=== PATIENT | male | born 1970 | race African-American/Black ===

== ENCOUNTER 2016-08-06 02:54 | Emergency (ER) | payer OTHER ==
[~2016-08-06] VITALS: Ht 167.6 cm; Wt 72.7 kg
[~2016-08-06 02:54] MED LIST: CLON0.3T3 PO; DIAZ10 PO; DOXE50 PO; FIORIT PO; HYDR25TA PO; IBUP-1547 PO; LABE200T PO; NIFE60TA71 PO; SERT100T12 PO
[2016-08-06] MEDS ORDERED: HYDR100T28 PO (03:10)
[2016-08-06] MEDS ORDERED: CloNIDine HCL 0.1 MG TABLET PO ONE (03:15)
[2016-08-06] MEDS ORDERED: ONDANSETRON HCL 4 MG/2 ML VIAL IVP ONE (05:00)
[2016-08-06] MEDS ORDERED: HydrALAZINE HCL 20 MG/ML VIAL IVP ONE (05:00)
[2016-08-06] MEDS ORDERED: DiphenhydrAMINE HCL 50 MG/ML VIAL IVP ONE (05:00)
[2016-08-06] MEDS ORDERED: LORazepam 2 MG/ML VIAL IVP ONE (05:00)
[2016-08-06 07:48] VITALS: BP 168/103
== END 2016-08-06 08:11 | disposition home or self-care (01) ==
LOC: EMS 02:56
DX: G40.909 Epilepsy, unspecified, not intractable, without status epilepticus (principal); I10 Essential (primary) hypertension; F41.9 Anxiety disorder, unspecified; R00.2 Palpitations; G89.29 Other chronic pain; F17.210 Nicotine dependence, cigarettes, uncomplicated; Z88.6 Allergy status to analgesic agent; Z88.5 Allergy status to narcotic agent
CPT/HCPCS: 96374; 96375; 99284; 99406; J0360; J1200; J2060; J2405

== ENCOUNTER 2016-11-06 12:38 | Inpatient (IN) | payer OTHER ==
[~2016-11-06] VITALS: Ht 167.6 cm; Wt 73.4 kg
[~2016-11-06 12:38] MED LIST changes: +HYDR100T28 PO; -IBUP-1547 PO
[2016-11-06 15:37] LABS: BASOPHILS % (AUTO) 0.4 % (0.0-2.0); EOSINOPHILS % (AUTO) 0.8 % (1.0-6.0); HEMATOCRIT 41.2 % (41-53); LYMPHOCYTES # (AUTO) 2.2 K/uL (1.0-4.8); LYMPHOCYTES % (AUTO) 17.8 % (22.0-44.0); MEAN CORPUSCULAR HEMOGLOBIN 26.6 pg (26.0-34.0); MEAN CORPUSCULAR HGB CONC 31.6 G/dL (31.0-37.0); MEAN CORPUSCULAR VOLUME 84 fL (80-100); MONOCYTES # (AUTO) 0.6 K/uL (0.1-1.0); MONOCYTES % (AUTO) 4.7 % (2.0-9.0); NEUTROPHILS # (AUTO) 9.3 K/uL (1.8-7.7); NEUTROPHILS % (AUTO) 76.3 % (40.0-70.0); PLATELET COUNT (AUTO) 188 K/uL (150-450); RED BLOOD CELL COUNT(AUTO) 4.89 MIL/uL (4.50-5.90); RED CELL DISTRIBUTION WIDTH 15.9 % (11.5-14.5); WHITE BLOOD COUNT (AUTO) 12.3 K/uL (4.5-11.0)
[2016-11-06 15:56] LABS: ANION GAP 13 mmol/L (8-16); CALCIUM, TOTAL 8.8 mg/dL (8.8-10.5); CARBON DIOXIDE 24 mmol/L (22-29); CHLORIDE 102 mmol/L (98-107); CREATININE 1.09 mg/dL (0.60-1.30); GLOMERULAR FILTR. RATE CALC > 60 mL/min (>60); POTASSIUM 3.3 mmol/L (3.5-5.1); SODIUM SERUM 139 mmol/L (136-145); UREA NITROGEN, BLOOD 9 mg/dL (7-18)
[2016-11-06 16:01] LABS: ALANINE AMINOTRANSFERASE 37 U/L (12-78); ALBUMIN 3.9 g/dL (3.4-5.0); ASPARTATE AMINOTRANSFERASE 37 U/L (15-37); BILIRUBIN,TOTAL 0.2 mg/dL (0.1-1.0); CREATINE KINASE, TOTAL 823 U/L (39-308); TOTAL PROTEIN, SERUM 7.7 g/dL (6.4-8.2)
[2016-11-06] MEDS ORDERED: ASPIRIN 325 MG EC TABLET PO ONE (17:15)
[2016-11-06] MEDS ORDERED: HYDROmorphone 2 MG/ML SYRINGE IVP ONE (17:15)
[2016-11-06] MEDS ORDERED: NITROGLYCERIN 0.4 MG SUBLINGUAL TABLET #25 SL ONE (17:15)
[2016-11-06] MEDS ORDERED: LORazepam 2 MG/ML VIAL IVP ONE (17:15)
[2016-11-06] MEDS ORDERED: ONDANSETRON HCL 4 MG/2 ML VIAL IVP ONE (17:15)
[2016-11-06] MEDS ORDERED: NITROGLYCERIN 2% (1 GM=INCH) PACKET TP ONE (17:15)
[2016-11-06] MEDS ORDERED: LABETALOL HCL 200 MG TABLET PO ONE (17:15)
[2016-11-06] MEDS ORDERED: PANTOPRAZOLE SODIUM 40 MG/VIAL IVP ONE (17:15)
[2016-11-06 17:38] LABS: CREATINE KINASE MB 13.9 ng/mL (0-5)
[2016-11-06] MEDS ORDERED: CloNIDine HCL 0.1 MG TABLET PO ONE (18:45)
[2016-11-06] MEDS ORDERED: HYDROCHLOROTHIAZIDE 25 MG TABLET PO ONE (18:45)
[2016-11-06] MEDS ORDERED: HydrALAZINE HCL 25 MG TABLET PO ONE (18:45)
[2016-11-06 21:22] VITALS: BP 174/103
[2016-11-06 21:23] LABS: CREATINE KINASE MB 25.5 ng/mL (0-5)
[2016-11-06] MEDS ORDERED: HEPARIN SODIUM,PORCINE 5,000 UNITS/ML VIAL IVP ONE (21:30)
[2016-11-06] MEDS ORDERED: HEPARIN SODIUM 25000 UNITS/D5W 250 ML IV PRN (21:30)
[2016-11-06] MEDS ORDERED: HEPARIN SODIUM,PORCINE 5,000 UNITS/ML VIAL IVP PRN ×2 (21:30)
[2016-11-06 22:07] LABS: APPEARANCE,URINE CLEAR (CLEAR); GLUCOSE, URINE (UA) NEGATIVE (NEGATIVE); KETONES,URINE NEGATIVE (NEGATIVE); LEUKOCYTE ESTERASE ,URINE NEGATIVE (NEGATIVE); OCCULT BLOOD,URINE NEGATIVE (NEGATIVE); PH,URINE 6.5 (5.0-8.0); PROTEIN,URINE TRACE (NEGATIVE)
[2016-11-06] MEDS: LORazepam 2 MG/ML VIAL IVP PRN (22:11)
[2016-11-06 22:20] LABS: ADD UA MICROSCOPIC NO
[2016-11-06] MEDS: HYDROmorphone 2 MG/ML SYRINGE IVP PRN (22:24)
[2016-11-06 22:44] LABS: INR 0.9 (0.9-1.1); PROTHROMBIN TIME 9.7 SEC (9.4-11.6)
[2016-11-06 23:57] VITALS: BP 193/124
[2016-11-06] MEDS: NITROGLYCERIN 2% (1 GM=INCH) PACKET TP SCH (23:58)
[2016-11-07] VITALS (13 sets, daily range): BP systolic 121–195; BP diastolic 59–123
[2016-11-07] MEDS ORDERED: BUTALBITAL/ACETAMINOPHEN/CAFFEINE 50-325-40 MG TABLET PO PRN (00:45)
[2016-11-07] MEDS ORDERED: LABETALOL HCL 200 MG TABLET PO SCH (00:45)
[2016-11-07] MEDS ORDERED: NIFEdipine 60 MG ER TABLET PO SCH (00:45)
[2016-11-07] MEDS ORDERED: HYDROCHLOROTHIAZIDE 25 MG TABLET PO SCH (00:45)
[2016-11-07] MEDS: HYDROCHLOROTHIAZIDE 25 MG TABLET PO SCH ×3 (01:07→22:29)
[2016-11-07] MEDS: LABETALOL HCL 200 MG TABLET PO SCH ×2 (01:25→08:24)
[2016-11-07] MEDS: NIFEdipine 60 MG ER TABLET PO SCH ×3 (01:26→20:24)
[2016-11-07] MEDS ORDERED: ACETAMINOPHEN 325 MG TABLET PO PRN (02:15)
[2016-11-07] MEDS ORDERED: MAGNESIUM HYDROXIDE SUSPENSION 30 ML UDCUP PO PRN (02:15)
[2016-11-07] MEDS: DOCUSATE SODIUM 100 MG CAPSULE PO SCH ×3 (02:15→20:24)
[2016-11-07] MEDS ORDERED: 0.9% SODIUM CHLORIDE 10 ML SYRINGE IVP PRN (02:15)
[2016-11-07 04:02] LABS: BASOPHILS # (AUTO) 0.02 K/uL (0.00-0.20); BASOPHILS % (AUTO) 0.3 % (0.0-2.0); EOSINOPHILS # (AUTO) 0.03 K/uL (0.00-0.70); HEMATOCRIT 37.1 % (41-53); HEMOGLOBIN 11.9 g/dL (13.5-17.5); LYMPHOCYTES # (AUTO) 1.6 K/uL (1.0-4.8); LYMPHOCYTES % (AUTO) 19.3 % (22.0-44.0); MEAN CORPUSCULAR HEMOGLOBIN 27.3 pg (26.0-34.0); MEAN CORPUSCULAR HGB CONC 32.2 G/dL (31.0-37.0); MEAN CORPUSCULAR VOLUME 85 fL (80-100); MONOCYTES # (AUTO) 0.6 K/uL (0.1-1.0); MONOCYTES % (AUTO) 6.8 % (2.0-9.0); NEUTROPHILS # (AUTO) 6.1 K/uL (1.8-7.7); NEUTROPHILS % (AUTO) 73.3 % (40.0-70.0); PLATELET COUNT (AUTO) 162 K/uL (150-450); RED BLOOD CELL COUNT(AUTO) 4.38 MIL/uL (4.50-5.90); RED CELL DISTRIBUTION WIDTH 16.2 % (11.5-14.5); WHITE BLOOD COUNT (AUTO) 8.4 K/uL (4.5-11.0)
[2016-11-07] MEDS: HYDROmorphone 2 MG/ML SYRINGE IVP PRN ×2 (04:58→20:24)
[2016-11-07] MEDS: NITROGLYCERIN 2% (1 GM=INCH) PACKET TP SCH ×3 (08:02→17:08)
[2016-11-07] MEDS: PANTOPRAZOLE SODIUM 40 MG/VIAL IVP SCH (08:03)
[2016-11-07] MEDS: HydrALAZINE HCL 50 MG TABLET PO SCH ×3 (08:03→20:23)
[2016-11-07] MEDS: LORazepam 2 MG/ML VIAL IVP PRN (08:04)
[2016-11-07] MEDS: DIAZEPAM 5 MG TABLET PO SCH ×3 (08:04→20:23)
[2016-11-07] MEDS ORDERED: SODIUM BICARBONATE 50 MEQ/50 ML VIAL ONE (08:15)
[2016-11-07] MEDS ORDERED: LIDOCAINE HCL/PF 1% 30 ML VIAL ONE (08:15)
[2016-11-07] MEDS ORDERED: IOHEXOL 300 MG/ML 150 ML VIAL ONE (08:16)
[2016-11-07] MEDS: SERTRALINE HCL 100 MG TABLET PO SCH (08:24)
[2016-11-07] MEDS: DOXEPIN HCL 50 MG CAPSULE PO SCH (08:26)
[2016-11-07] MEDS ORDERED: HEPARIN SODIUM,PORCINE 1,000 UNITS/ML 10 ML VIAL ONE (08:38)
[2016-11-07] MEDS ORDERED: DIAZEPAM 10 MG TABLET PO SCH (09:00)
[2016-11-07] MEDS ORDERED: DOXEPIN HCL 50 MG CAPSULE PO SCH (09:00)
[2016-11-07] MEDS ORDERED: [UNRECOGNIZED DRUG - OTHER] PO SCH (09:00)
[2016-11-07] MEDS ORDERED: SERTRALINE HCL 100 MG TABLET PO SCH (09:00)
[2016-11-07] MEDS ORDERED: MIDAZOLAM HCL 2 MG/2 ML VIAL ONE (09:19)
[2016-11-07] MEDS ORDERED: FentaNYL CITRATE-PF 100 MCG/2 ML VIAL ONE (09:19)
[2016-11-07] MEDS ORDERED: LIDOCAINE 1% 30 ML/SOD BICARB 8.4% 4 ML SQ ONE (09:21)
[2016-11-07] MEDS ORDERED: SODIUM CHLORIDE 0.9% 500 ML IV ONE (09:21)
[2016-11-07] MEDS ORDERED: HEPARIN SODIUM 2,000 UNITS in HEPARIN SODIUM 1000 UNITS/NS 1,000 ML IARTER ONE (09:23)
[2016-11-07] MEDS ORDERED: IOHEXOL 300 MG/ML 150 ML VIAL IARTER ONE (09:26)
[2016-11-07] MEDS ORDERED: IOHEXOL 300 MG/ML 50 ML VIAL IARTER ONE (09:26)
[2016-11-07] MEDS ORDERED: IOHEXOL 300 MG/ML 100 ML VIAL IARTER ONE (09:26)
[2016-11-07] MEDS ORDERED: POTASSIUM CHLORIDE 20 MEQ ER TABLET ONE (09:33)
[2016-11-07] MEDS ORDERED: TICAGRELOR 90 MG TABLET ONE (09:33)
[2016-11-07] MEDS ORDERED: IOHEXOL 300 MG/ML 100 ML VIAL ONE (09:34)
[2016-11-07] MEDS ORDERED: IOHEXOL 300 MG/ML 50 ML VIAL ONE (09:34)
[2016-11-07] MEDS ORDERED: POTASSIUM CHLORIDE 20 MEQ ER TABLET PO ONE (09:35)
[2016-11-07] MEDS ORDERED: TICAGRELOR 90 MG TABLET PO ONE (09:35)
[2016-11-07] MEDS ORDERED: ASPIRIN 325 MG TABLET PO ONE (09:35)
[2016-11-07] MEDS ORDERED: VERAPAMIL HCL 2.5 MG/ML 2 ML VIAL ONE (09:35)
[2016-11-07] MEDS ORDERED: NITROGLYCERIN 50 MG/D5% WATER 250 ML ONE (09:35)
[2016-11-07] MEDS ORDERED: HEPARIN SODIUM,PORCINE 5,000 UNITS/ML VIAL IVP ONE ×2 (09:39→10:57)
[2016-11-07] MEDS ORDERED: VERAPAMIL HCL 2.5 MG/ML 2 ML VIAL ICOR ONE (09:54)
[2016-11-07] MEDS ORDERED: NITROGLYCERIN/D5W 50 MG/250 ML IV BOTTLE ICOR ONE (09:54)
[2016-11-07] MEDS: ONDANSETRON HCL 4 MG/2 ML VIAL IVP PRN ×2 (11:35→22:58)
[2016-11-07] MEDS ORDERED: LISINOPRIL 20 MG TABLET PO SCH (12:00)
[2016-11-07] MEDS: ATORVASTATIN CALCIUM 40 MG TABLET PO SCH (12:20)
[2016-11-07] MEDS: METOPROLOL SUCCINATE 100 MG ER TABLET PO SCH (12:21)
[2016-11-07 12:30] LABS: CREATINE KINASE MB 34.9 ng/mL (0-5)
[2016-11-07 12:49] LABS: GLUCOSE,POINT OF CARE 109 MG/DL (70-110)
[2016-11-07] MEDS: LOSARTAN POTASSIUM 50 MG TABLET PO SCH (15:35)
[2016-11-07] MEDS: TICAGRELOR 90 MG TABLET PO SCH (20:24)
[2016-11-08] VITALS (15 sets, daily range): BP systolic 141–167; BP diastolic 84–109
[2016-11-08] MEDS: NITROGLYCERIN 2% (1 GM=INCH) PACKET TP SCH ×5 (00:39→23:19)
[2016-11-08] MEDS: HYDROmorphone 2 MG/ML SYRINGE IVP PRN ×5 (00:40→20:29)
[2016-11-08] MEDS: ONDANSETRON HCL 4 MG/2 ML VIAL IVP PRN (05:42)
[2016-11-08 05:47] LABS: ALANINE AMINOTRANSFERASE 326 U/L (12-78); ALBUMIN 3.5 g/dL (3.4-5.0); ANION GAP 10 mmol/L (8-16); ASPARTATE AMINOTRANSFERASE 189 U/L (15-37); BILIRUBIN,TOTAL 0.4 mg/dL (0.1-1.0); CALCIUM, TOTAL 8.6 mg/dL (8.8-10.5); CARBON DIOXIDE 27 mmol/L (22-29); CHLORIDE 97 mmol/L (98-107); CREATININE 1.23 mg/dL (0.60-1.30); GLOMERULAR FILTR. RATE CALC > 60 mL/min (>60); POTASSIUM 3.6 mmol/L (3.5-5.1); SODIUM SERUM 134 mmol/L (136-145); TOTAL PROTEIN, SERUM 6.8 g/dL (6.4-8.2); UREA NITROGEN, BLOOD 12 mg/dL (7-18)
[2016-11-08 06:09] LABS: BASOPHILS % (AUTO) 0.2 % (0.0-2.0); EOSINOPHILS % (AUTO) 0.6 % (1.0-6.0); LYMPHOCYTES # (AUTO) 1.6 K/uL (1.0-4.8); LYMPHOCYTES % (AUTO) 14.9 % (22.0-44.0); MEAN CORPUSCULAR HGB CONC 31.7 G/dL (31.0-37.0); MEAN CORPUSCULAR VOLUME 85 fL (80-100); MONOCYTES # (AUTO) 0.6 K/uL (0.1-1.0); MONOCYTES % (AUTO) 5.6 % (2.0-9.0); NEUTROPHILS # (AUTO) 8.2 K/uL (1.8-7.7); NEUTROPHILS % (AUTO) 78.7 % (40.0-70.0); PLATELET COUNT (AUTO) 186 K/uL (150-450); RED BLOOD CELL COUNT(AUTO) 4.47 MIL/uL (4.50-5.90); RED CELL DISTRIBUTION WIDTH 16.1 % (11.5-14.5); WHITE BLOOD COUNT (AUTO) 10.5 K/uL (4.5-11.0)
[2016-11-08] MEDS: PANTOPRAZOLE SODIUM 40 MG/VIAL IVP SCH (08:38)
[2016-11-08] MEDS: DOCUSATE SODIUM 100 MG CAPSULE PO SCH ×2 (08:39→20:27)
[2016-11-08] MEDS: LOSARTAN POTASSIUM 50 MG TABLET PO SCH (08:39)
[2016-11-08] MEDS: ASPIRIN 81 MG CHEWABLE TABLET PO SCH (08:39)
[2016-11-08] MEDS: HydrALAZINE HCL 50 MG TABLET PO SCH ×3 (08:39→22:38)
[2016-11-08] MEDS: TICAGRELOR 90 MG TABLET PO SCH ×2 (08:39→20:27)
[2016-11-08] MEDS: HYDROCHLOROTHIAZIDE 25 MG TABLET PO SCH ×2 (08:40→20:28)
[2016-11-08] MEDS: DOXEPIN HCL 50 MG CAPSULE PO SCH (08:40)
[2016-11-08] MEDS: ATORVASTATIN CALCIUM 40 MG TABLET PO SCH (08:40)
[2016-11-08] MEDS: NIFEdipine 60 MG ER TABLET PO SCH ×2 (08:40→20:28)
[2016-11-08] MEDS: METOPROLOL SUCCINATE 100 MG ER TABLET PO SCH (08:40)
[2016-11-08] MEDS: DIAZEPAM 5 MG TABLET PO SCH ×3 (08:41→20:28)
[2016-11-08] MEDS: SERTRALINE HCL 100 MG TABLET PO SCH (08:41)
[2016-11-08 15:10] LABS: CHOL/HDL RATIO 2.7 (4.2-7.3); CREATINE KINASE MB 8.5 ng/mL (0-5)
[2016-11-09 01:00] VITALS: BP 148/97
[2016-11-09 04:14] VITALS: BP 156/96
[2016-11-09] MEDS: HYDROmorphone 2 MG/ML SYRINGE IVP PRN (04:14)
[2016-11-09] MEDS: NITROGLYCERIN 2% (1 GM=INCH) PACKET TP SCH ×2 (05:35→12:00)
[2016-11-09 05:50] VITALS: BP 152/102
[2016-11-09] MEDS: LOSARTAN POTASSIUM 50 MG TABLET PO SCH (05:53)
[2016-11-09 07:14] LABS: BASOPHILS # (AUTO) 0.03 K/uL (0.00-0.20); BASOPHILS % (AUTO) 0.3 % (0.0-2.0); EOSINOPHILS # (AUTO) 0.08 K/uL (0.00-0.70); EOSINOPHILS % (AUTO) 0.72 % (1.0-6.0); HEMATOCRIT 40.4 % (41-53); LYMPHOCYTES # (AUTO) 2.1 K/uL (1.0-4.8); LYMPHOCYTES % (AUTO) 19.6 % (22.0-44.0); MEAN CORPUSCULAR HEMOGLOBIN 27.2 pg (26.0-34.0); MEAN CORPUSCULAR HGB CONC 32.1 G/dL (31.0-37.0); MEAN CORPUSCULAR VOLUME 85 fL (80-100); MONOCYTES # (AUTO) 0.9 K/uL (0.1-1.0); MONOCYTES % (AUTO) 8.2 % (2.0-9.0); NEUTROPHILS # (AUTO) 7.5 K/uL (1.8-7.7); NEUTROPHILS % (AUTO) 71.2 % (40.0-70.0); PLATELET COUNT (AUTO) 224 K/uL (150-450); RED BLOOD CELL COUNT(AUTO) 4.77 MIL/uL (4.50-5.90); RED CELL DISTRIBUTION WIDTH 15.5 % (11.5-14.5); WHITE BLOOD COUNT (AUTO) 10.5 K/uL (4.5-11.0)
[2016-11-09 07:28] VITALS: BP 139/88
[2016-11-09 08:00] LABS: ALANINE AMINOTRANSFERASE 233 U/L (12-78); ALBUMIN 3.8 g/dL (3.4-5.0); ANION GAP 7 mmol/L (8-16); ASPARTATE AMINOTRANSFERASE 133 U/L (15-37); BILIRUBIN,TOTAL 0.3 mg/dL (0.1-1.0); CALCIUM, TOTAL 9.1 mg/dL (8.8-10.5); CARBON DIOXIDE 30 mmol/L (22-29); CHLORIDE 96 mmol/L (98-107); CREATINE KINASE MB 3.9 ng/mL (0-5); CREATINE KINASE, TOTAL 482 U/L (39-308); CREATININE 1.27 mg/dL (0.60-1.30); GLOMERULAR FILTR. RATE CALC > 60 mL/min (>60); POTASSIUM 3.6 mmol/L (3.5-5.1); SODIUM SERUM 133 mmol/L (136-145); TOTAL PROTEIN, SERUM 7.6 g/dL (6.4-8.2); UREA NITROGEN, BLOOD 18 mg/dL (7-18)
[2016-11-09] MEDS: PANTOPRAZOLE SODIUM 40 MG/VIAL IVP SCH (08:04)
[2016-11-09] MEDS: ATORVASTATIN CALCIUM 40 MG TABLET PO SCH (08:05)
[2016-11-09] MEDS: DIAZEPAM 5 MG TABLET PO SCH (08:05)
[2016-11-09] MEDS: DOCUSATE SODIUM 100 MG CAPSULE PO SCH (08:05)
[2016-11-09] MEDS: ASPIRIN 81 MG CHEWABLE TABLET PO SCH (08:05)
[2016-11-09] MEDS: HYDROCHLOROTHIAZIDE 25 MG TABLET PO SCH (08:06)
[2016-11-09] MEDS: HydrALAZINE HCL 50 MG TABLET PO SCH (08:07)
[2016-11-09] MEDS: NIFEdipine 60 MG ER TABLET PO SCH (08:08)
[2016-11-09] MEDS: TICAGRELOR 90 MG TABLET PO SCH (08:08)
[2016-11-09] MEDS: METOPROLOL SUCCINATE 100 MG ER TABLET PO SCH (08:09)
[2016-11-09] MEDS: DOXEPIN HCL 50 MG CAPSULE PO SCH (08:09)
[2016-11-09] MEDS: SERTRALINE HCL 100 MG TABLET PO SCH (08:09)
[2016-11-09] MEDS ORDERED: ATOR40TA28 PO (10:38)
[2016-11-09] MEDS ORDERED: TICA90TA PO (10:39)
[2016-11-09] MEDS ORDERED: ASPI81 PO (10:39)
[2016-11-09] MEDS ORDERED: METO-325 PO (10:40)
[2016-11-09 11:30] VITALS: BP 132/84
== END 2016-11-09 12:55 | disposition home or self-care (01) | DRG 174 ==
LOC: EMS 12:40 → 5N 20:41 → ICU 11-07 07:39 → 5S 11-08 13:15
PROVIDERS: ADMIT Internal Medicine; ATTEND Internal Medicine
PROC: 027034Z Dilation of Coronary Artery, One Artery with Drug-eluting Intraluminal Device, Percutaneous Approach (ICD-10-PCS; principal; 2016-11-07)
PROC: 4A023N7 Measurement of Cardiac Sampling and Pressure, Left Heart, Percutaneous Approach (ICD-10-PCS; 2016-11-07)
PROC: B2111ZZ Fluoroscopy of Multiple Coronary Arteries using Low Osmolar Contrast (ICD-10-PCS; 2016-11-07)
PROC: B2151ZZ Fluoroscopy of Left Heart using Low Osmolar Contrast (ICD-10-PCS; 2016-11-07)
DX: I21.4 Non-ST elevation (NSTEMI) myocardial infarction (principal); I10 Essential (primary) hypertension; F41.9 Anxiety disorder, unspecified; G43.909 Migraine, unspecified, not intractable, without status migrainosus; I25.10 Atherosclerotic heart disease of native coronary artery without angina pectoris; F17.210 Nicotine dependence, cigarettes, uncomplicated; F12.90 Cannabis use, unspecified, uncomplicated; F32.9 Major depressive disorder, single episode, unspecified; J44.9 Chronic obstructive pulmonary disease, unspecified; E78.5 Hyperlipidemia, unspecified; Z88.5 Allergy status to narcotic agent; Z88.6 Allergy status to analgesic agent; Z79.899 Other long term (current) drug therapy; Z86.718 Personal history of other venous thrombosis and embolism; Z71.6 Tobacco abuse counseling
CPT/HCPCS: 71020; 82962; 84132; 87081; 92920; 92928; 93005; 93306; 96374; 96375; 99285; C9113; J1170; J1644; J2060; J2250; J2405; J3010; J3490; Q9967

== ENCOUNTER 2017-01-07 05:17 | Emergency (ER) | payer OTHER ==
[~2017-01-07] VITALS: Ht 167.6 cm; Wt 75.0 kg
[~2017-01-07 05:17] MED LIST changes: +ASPI81 PO; +ATOR40TA28 PO; -FIORIT PO; -LABE200T PO; +METO-325 PO; +TICA90TA PO
[2017-01-07] MEDS ORDERED: BUTA1CAP16 PO (05:59)
[2017-01-07] MEDS ORDERED: [UNRECOGNIZED DRUG - CODE] PO (05:59)
[2017-01-07] MEDS ORDERED: CloNIDine HCL 0.1 MG TABLET PO ONE (06:15)
[2017-01-07 06:56] LABS: EOSINOPHILS # (AUTO) 0.03 K/uL (0.00-0.70); EOSINOPHILS % (AUTO) 0.19 % (1.0-6.0); HEMATOCRIT 34.2 % (41-53); HEMOGLOBIN 10.5 g/dL (13.5-17.5); LYMPHOCYTES # (AUTO) 0.6 K/uL (1.0-4.8); LYMPHOCYTES % (AUTO) 3.5 % (22.0-44.0); MEAN CORPUSCULAR HEMOGLOBIN 25.7 pg (26.0-34.0); MEAN CORPUSCULAR HGB CONC 30.6 G/dL (31.0-37.0); MEAN CORPUSCULAR VOLUME 84 fL (80-100); MONOCYTES # (AUTO) 0.1 K/uL (0.1-1.0); MONOCYTES % (AUTO) 0.6 % (2.0-9.0); NEUTROPHILS # (AUTO) 16.6 K/uL (1.8-7.7); PLATELET COUNT (AUTO) 170 K/uL (150-450); RED BLOOD CELL COUNT(AUTO) 4.08 MIL/uL (4.50-5.90); RED CELL DISTRIBUTION WIDTH 15.8 % (11.5-14.5); WHITE BLOOD COUNT (AUTO) 17.3 K/uL (4.5-11.0)
[2017-01-07 06:57] LABS: NEUTROPHILS % (AUTO) 95.7 % (40.0-70.0)
[2017-01-07 07:06] LABS: ANION GAP 12 mmol/L (8-16); CALCIUM, TOTAL 8.9 mg/dL (8.8-10.5); CARBON DIOXIDE 23 mmol/L (22-29); CHLORIDE 106 mmol/L (98-107); CREATININE 1.07 mg/dL (0.60-1.30); GLOMERULAR FILTR. RATE CALC > 60 mL/min (>60); POTASSIUM 3.5 mmol/L (3.5-5.1); SODIUM SERUM 141 mmol/L (136-145); UREA NITROGEN, BLOOD 9 mg/dL (7-18)
[2017-01-07 07:12] LABS: ALANINE AMINOTRANSFERASE 47 U/L (12-78); ALBUMIN 3.8 g/dL (3.4-5.0); ASPARTATE AMINOTRANSFERASE 34 U/L (15-37); BILIRUBIN,TOTAL 0.3 mg/dL (0.1-1.0); TOTAL PROTEIN, SERUM 6.9 g/dL (6.4-8.2)
[2017-01-07] MEDS ORDERED: LORazepam 1 MG TABLET PO ONE (07:45)
[2017-01-07] MEDS ORDERED: LABETALOL HCL 5 MG/ML 20 ML VIAL IVP ONE (08:45)
[2017-01-07 10:00] VITALS: BP 180/114
== END 2017-01-07 10:27 | disposition left against medical advice (07) ==
LOC: EMS 05:18
DX: F41.9 Anxiety disorder, unspecified (principal); R00.2 Palpitations; M79.674 Pain in right toe(s); I10 Essential (primary) hypertension; J40 Bronchitis, not specified as acute or chronic; F17.210 Nicotine dependence, cigarettes, uncomplicated; Z79.82 Long term (current) use of aspirin; Z88.5 Allergy status to narcotic agent; Z88.8 Allergy status to other drugs, medicaments and biological substances
CPT/HCPCS: 36415; 71010; 80053; 84484; 85025; 93005; 96374; 99285; J3490

== ENCOUNTER 2017-03-27 15:23 | Inpatient (IN) | payer OTHER ==
[~2017-03-27] VITALS: Ht 167.6 cm; Wt 72.9 kg
[~2017-03-27 15:23] MED LIST changes: -ATOR40TA28 PO; +BUTA1CAP16 PO; -HYDR100T28 PO; -METO-325 PO; +METO-558 PO; -TICA90TA PO; +[UNRECOGNIZED DRUG - CODE] PO
[2017-03-27 16:36] LABS: BASOPHILS % (AUTO) 0.2 % (0.0-2.0); EOSINOPHILS % (AUTO) 0.4 % (1.0-6.0); HEMATOCRIT 38.4 % (41-53); HEMOGLOBIN 12.7 g/dL (13.5-17.5); LYMPHOCYTES # (AUTO) 1.8 K/uL (1.0-4.8); LYMPHOCYTES % (AUTO) 14.7 % (22.0-44.0); MEAN CORPUSCULAR HEMOGLOBIN 28.1 pg (26.0-34.0); MEAN CORPUSCULAR VOLUME 85 fL (80-100); MONOCYTES # (AUTO) 0.5 K/uL (0.1-1.0); MONOCYTES % (AUTO) 4.4 % (2.0-9.0); NEUTROPHILS # (AUTO) 9.7 K/uL (1.8-7.7); NEUTROPHILS % (AUTO) 80.3 % (40.0-70.0); PLATELET COUNT (AUTO) 152 K/uL (150-450); RED BLOOD CELL COUNT(AUTO) 4.52 MIL/uL (4.50-5.90); RED CELL DISTRIBUTION WIDTH 15.2 % (11.5-14.5); WHITE BLOOD COUNT (AUTO) 12.1 K/uL (4.5-11.0)
[2017-03-27] MEDS ORDERED: ASPIRIN 81 MG CHEWABLE TABLET PO ONE (16:45)
[2017-03-27] MEDS ORDERED: LABETALOL HCL 5 MG/ML 20 ML VIAL IVP ONE ×2 (16:45→17:30)
[2017-03-27] MEDS ORDERED: NITROGLYCERIN 2% (1 GM=INCH) PACKET TP ONE (16:45)
[2017-03-27] MEDS ORDERED: METOCLOPRAMIDE HCL 5 MG/ML 2 ML VIAL IVP ONE (16:45)
[2017-03-27 16:49] LABS: INR 0.9 (0.9-1.1); PROTHROMBIN TIME 9.7 SEC (9.4-11.6)
[2017-03-27 16:54] LABS: ANION GAP 13 mmol/L (8-16); CALCIUM, TOTAL 9.1 mg/dL (8.8-10.5); CARBON DIOXIDE 25 mmol/L (22-29); CHLORIDE 104 mmol/L (98-107); CREATININE 1.23 mg/dL (0.60-1.30); GLOMERULAR FILTR. RATE CALC > 60 mL/min (>60); POTASSIUM 3.5 mmol/L (3.5-5.1); SODIUM SERUM 142 mmol/L (136-145); UREA NITROGEN, BLOOD 9 mg/dL (7-18)
[2017-03-27 16:58] LABS: ALANINE AMINOTRANSFERASE 26 U/L (12-78); ALBUMIN 4.1 g/dL (3.4-5.0); ASPARTATE AMINOTRANSFERASE 31 U/L (15-37); BILIRUBIN,TOTAL 0.1 mg/dL (0.1-1.0); TOTAL PROTEIN, SERUM 7.8 g/dL (6.4-8.2)
[2017-03-27] MEDS ORDERED: ACETAMINOPHEN 325 MG TABLET PO PRN ×2 (17:45→21:00)
[2017-03-27] MEDS ORDERED: ONDANSETRON HCL 4 MG/2 ML VIAL IVP PRN ×2 (17:45→22:00)
[2017-03-27] MEDS ORDERED: 0.9% SODIUM CHLORIDE 10 ML SYRINGE IVP PRN (17:45)
[2017-03-27] MEDS ORDERED: BUTALBITAL/ACETAMINOPHEN/CAFFEINE 50-325-40 MG TABLET PO ONE (18:30)
[2017-03-27 20:18] VITALS: BP 173/114
[2017-03-27] MEDS ORDERED: MAGNESIUM HYDROXIDE SUSPENSION 30 ML UDCUP PO PRN (21:00)
[2017-03-27] MEDS ORDERED: ENALAPRILAT DIHYDRATE 1.25 MG/ML VIAL IVP PRN (21:15)
[2017-03-27] MEDS: DOCUSATE SODIUM 100 MG CAPSULE PO SCH (22:17)
[2017-03-27 22:36] LABS: ADD UA MICROSCOPIC NO; APPEARANCE,URINE CLEAR (CLEAR); GLUCOSE, URINE (UA) NEGATIVE (NEGATIVE); KETONES,URINE NEGATIVE (NEGATIVE); LEUKOCYTE ESTERASE ,URINE NEGATIVE (NEGATIVE); OCCULT BLOOD,URINE NEGATIVE (NEGATIVE); PROTEIN,URINE NEGATIVE (NEGATIVE)
[2017-03-28] MEDS ORDERED: CloNIDine HCL 0.1 MG TABLET PO SCH
[2017-03-28 00:20] VITALS: BP 170/116
[2017-03-28] MEDS: DIAZEPAM 5 MG TABLET PO SCH ×3 (03:19→11:54)
[2017-03-28 03:26] VITALS: BP 171/126
[2017-03-28] MEDS ORDERED: BUTALBITAL/ASPIRIN/CAFFEINE 50-325-40 MG CAPSULE PO PRN ×2 (03:30)
[2017-03-28 04:56] VITALS: BP 183/116
[2017-03-28] MEDS: BUTALBITAL/ACETAMINOPHEN/CAFFEINE 50-325-40 MG TABLET PO PRN ×2 (06:11→11:55)
[2017-03-28] MEDS ORDERED: BUTA1CAP53 PO (07:42)
[2017-03-28 07:50] VITALS: BP 201/121
[2017-03-28] MEDS ORDERED: CLOP75 PO (07:51)
[2017-03-28] MEDS ORDERED: CloNIDine HCL 0.1 MG TABLET ONE (08:11)
[2017-03-28] MEDS: DOCUSATE SODIUM 100 MG CAPSULE PO SCH (08:35)
[2017-03-28] MEDS ORDERED: AmLODIPine BESYLATE 10 MG TABLET PO SCH ×2 (09:00→21:00)
[2017-03-28] MEDS ORDERED: ASPIRIN 81 MG CHEWABLE TABLET PO SCH (09:00)
[2017-03-28] MEDS ORDERED: HYDROCHLOROTHIAZIDE 25 MG TABLET PO SCH (09:00)
[2017-03-28] MEDS ORDERED: PANTOPRAZOLE SODIUM 40 MG DR TABLET PO SCH (09:00)
[2017-03-28 09:40] VITALS: BP_SYST 188; BP_SYST 195; BP_DIAS 107; BP_DIAS 132
[2017-03-28] MEDS ORDERED: LOSARTAN POTASSIUM 50 MG TABLET PO SCH (10:00)
[2017-03-28 11:43] VITALS: BP 161/115
[2017-03-28] MEDS ORDERED: DIAZEPAM 5 MG TABLET ONE (11:47)
[2017-03-28] MEDS ORDERED: INFLUENZA VIRUS VACCINE QVS 2017-18 (3YR+)/PF 60 MCG/0.5 ML SYRINGE IM ONE (13:15)
[2017-03-28] MEDS ORDERED: ENALAPRILAT DIHYDRATE 1.25 MG/ML VIAL IVP PRN (15:15)
[2017-03-28] MEDS ORDERED: DIAZEPAM 5 MG TABLET PO SCH (16:00)
== END 2017-03-28 14:15 | disposition left against medical advice (07) | DRG 199 ==
LOC: EMS 15:24 → 5S 17:34
PROVIDERS: ADMIT Internal Medicine; ATTEND Internal Medicine
PROC: 3E0234Z Introduction of Serum, Toxoid and Vaccine into Muscle, Percutaneous Approach (ICD-10-PCS; principal; 2017-03-28)
DX: I16.0 Hypertensive urgency (principal); F41.1 Generalized anxiety disorder; I10 Essential (primary) hypertension; F17.200 Nicotine dependence, unspecified, uncomplicated; Z91.19 Patient's noncompliance with other medical treatment and regimen; Z95.5 Presence of coronary angioplasty implant and graft; Z88.8 Allergy status to other drugs, medicaments and biological substances; Z23 Encounter for immunization; Z53.21 Procedure and treatment not carried out due to patient leaving prior to being seen by health care provider
CPT/HCPCS: 80307; 90471; 93005; 96361; 96374; 96375; 99285; G0480; J2405; J2765; J3490

== ENCOUNTER 2017-05-18 01:02 | Emergency (ER) | payer OTHER ==
[~2017-05-18] VITALS: Ht 167.6 cm; Wt 74.0 kg
[~2017-05-18 01:02] MED LIST changes: -BUTA1CAP16 PO; +BUTA1CAP53 PO; +CLOP75 PO; -[UNRECOGNIZED DRUG - CODE] PO
[2017-05-18 02:32] VITALS: BP 188/131
[2017-05-18] MEDS ORDERED: HYDROCODONE/ACETAMINOPHEN 5-325 MG TABLET PO ONE (02:45)
[2017-05-18] MEDS ORDERED: ONDANSETRON HCL 4 MG TABLET PO ONE (02:45)
== END 2017-05-18 03:31 | disposition home or self-care (01) ==
LOC: EMS 01:03
DX: S09.90XA Unspecified injury of head, initial encounter (principal); I10 Essential (primary) hypertension; F17.210 Nicotine dependence, cigarettes, uncomplicated; Z88.5 Allergy status to narcotic agent; Z88.8 Allergy status to other drugs, medicaments and biological substances; Y04.0XXA Assault by unarmed brawl or fight, initial encounter; Y93.89 Activity, other specified; Y92.89 Other specified places as the place of occurrence of the external cause; Y99.8 Other external cause status
CPT/HCPCS: 70450; 99284; Q0162

== ENCOUNTER 2017-07-16 15:58 | Emergency (ER) | payer OTHER ==
[~2017-07-16] VITALS: Ht 167.6 cm; Wt 68.0 kg
[2017-07-16 16:11] VITALS: BP 162/118
== END 2017-07-16 20:50 | disposition left against medical advice (07) ==
LOC: EMS 16:01
DX: M79.89 Other specified soft tissue disorders (principal); G43.909 Migraine, unspecified, not intractable, without status migrainosus; I10 Essential (primary) hypertension; F17.210 Nicotine dependence, cigarettes, uncomplicated; Z53.21 Procedure and treatment not carried out due to patient leaving prior to being seen by health care provider

== ENCOUNTER → 2018-07-12 | Emergency (ER) | payer OTHER ==
[~2018-07-12] VITALS: Ht 170.2 cm; Wt 75.9 kg
[~2018-07-12] MED LIST changes: +CloNIDine HCL 0.2 MG TABLET PO ONE; +DiphenhydrAMINE HCL 50 MG/ML VIAL IVP ONE; +LABETALOL HCL 5 MG/ML 20 ML VIAL IVP ONE; +POTASSIUM CHLORIDE 20 MEQ ER TABLET PO ONE; +PROCHLORPERAZINE EDISYLATE 5 MG/ML 2 ML VIAL IVP ONE; +SODIUM CHLORIDE 0.9% 1,000 ML IV ONE
[2018-07-12 04:46] LABS: BASOPHILS % (AUTO) 0.2 % (0.0-2.0); EOSINOPHILS % (AUTO) 0.9 % (1.0-6.0); HEMATOCRIT 39.1 % (41-53); LYMPHOCYTES # (AUTO) 2.2 K/uL (1.0-4.8); LYMPHOCYTES % (AUTO) 18.8 % (22.0-44.0); MEAN CORPUSCULAR HEMOGLOBIN 27.9 pg (26.0-34.0); MEAN CORPUSCULAR HGB CONC 33.1 G/dL (31.0-37.0); MEAN CORPUSCULAR VOLUME 84 fL (80-100); MONOCYTES # (AUTO) 0.6 K/uL (0.1-1.0); MONOCYTES % (AUTO) 5.5 % (2.0-9.0); NEUTROPHILS # (AUTO) 8.8 K/uL (1.8-7.7); NEUTROPHILS % (AUTO) 74.6 % (40.0-70.0); PLATELET COUNT (AUTO) 119 K/uL (150-450); RED BLOOD CELL COUNT(AUTO) 4.65 MIL/uL (4.50-5.90); RED CELL DISTRIBUTION WIDTH 15.4 % (11.5-14.5)
[2018-07-12 04:53] LABS: ANION GAP 7 mmol/L (8-16); CALCIUM, TOTAL 8.5 mg/dL (8.8-10.5); CARBON DIOXIDE 27 mmol/L (22-29); CHLORIDE 106 mmol/L (98-107); CREATININE 1.37 mg/dL (0.60-1.30); GLOMERULAR FILTR. RATE CALC > 60 mL/min (>60); GLUCOSE,RANDOM 89 mg/dL (70-110); POTASSIUM 3.2 mmol/L (3.5-5.1); SODIUM SERUM 140 mmol/L (136-145); UREA NITROGEN, BLOOD 18 mg/dL (7-18)
[2018-07-12 04:59] LABS: ALANINE AMINOTRANSFERASE 25 U/L (12-78); ALBUMIN 3.4 g/dL (3.4-5.0); ALKALINE PHOSPHATASE 96 U/L (46-116); ASPARTATE AMINOTRANSFERASE 22 U/L (15-37); BILIRUBIN,TOTAL 0.2 mg/dL (0.1-1.0); TOTAL PROTEIN, SERUM 6.5 g/dL (6.4-8.2)
[2018-07-12 06:18] VITALS: BP 170/107
== END | disposition home or self-care (01) ==
LOC: EMS 03:26
DX: G43.909 Migraine, unspecified, not intractable, without status migrainosus (principal); I10 Essential (primary) hypertension; F41.9 Anxiety disorder, unspecified; F17.210 Nicotine dependence, cigarettes, uncomplicated; Z88.6 Allergy status to analgesic agent; Z88.5 Allergy status to narcotic agent; Z79.82 Long term (current) use of aspirin
CPT/HCPCS: 36415; 70450; 71045; 80053; 84484; 85025; 85610; 96374; 96375; 99285; G0480; J0780; J1200; J3490; J7030

== ENCOUNTER 2018-09-06 12:53 | Inpatient (IN) | payer OTHER ==
[~2018-09-06] VITALS: Ht 172.7 cm; Wt 72.9 kg
[~2018-09-06 12:53] MED LIST changes: -CLOP75 PO; +CLOP75TA3 PO; -CloNIDine HCL 0.2 MG TABLET PO ONE; -DiphenhydrAMINE HCL 50 MG/ML VIAL IVP ONE; -LABETALOL HCL 5 MG/ML 20 ML VIAL IVP ONE; -POTASSIUM CHLORIDE 20 MEQ ER TABLET PO ONE; -PROCHLORPERAZINE EDISYLATE 5 MG/ML 2 ML VIAL IVP ONE; -SODIUM CHLORIDE 0.9% 1,000 ML IV ONE
[2018-09-06] MEDS ORDERED: CLON.3 PO (13:14)
[2018-09-06] MEDS ORDERED: NITROGLYCERIN 2% (1 GM=INCH) PACKET TP ONE (14:00)
[2018-09-06] MEDS ORDERED: ASPIRIN 325 MG TABLET PO ONE (14:00)
[2018-09-06 14:43] LABS: BASOPHILS % (AUTO) 0.5 % (0.0-2.0); EOSINOPHILS % (AUTO) 0.9 % (1.0-6.0); HEMATOCRIT 39.2 % (41-53); HEMOGLOBIN 12.9 g/dL (13.5-17.5); LYMPHOCYTES # (AUTO) 1.4 K/uL (1.0-4.8); LYMPHOCYTES % (AUTO) 23.9 % (22.0-44.0); MEAN CORPUSCULAR HEMOGLOBIN 28.2 pg (26.0-34.0); MEAN CORPUSCULAR HGB CONC 32.9 G/dL (31.0-37.0); MEAN CORPUSCULAR VOLUME 86 fL (80-100); MONOCYTES # (AUTO) 0.4 K/uL (0.1-1.0); MONOCYTES % (AUTO) 7.1 % (2.0-9.0); NEUTROPHILS # (AUTO) 4.1 K/uL (1.8-7.7); NEUTROPHILS % (AUTO) 67.6 % (40.0-70.0); PLATELET COUNT (AUTO) 122 K/uL (150-450); RED BLOOD CELL COUNT(AUTO) 4.56 MIL/uL (4.50-5.90); RED CELL DISTRIBUTION WIDTH 15.3 % (11.5-14.5)
[2018-09-06 14:55] LABS: PROTHROMBIN TIME 10.5 SEC (9.4-11.6)
[2018-09-06 15:23] LABS: ANION GAP 12 mmol/L (8-16); CARBON DIOXIDE 21 mmol/L (22-29); CHLORIDE 104 mmol/L (98-107); CREATININE 1.07 mg/dL (0.60-1.30); GLUCOSE,RANDOM 90 mg/dL (70-110); POTASSIUM 3.4 mmol/L (3.5-5.1); SODIUM SERUM 137 mmol/L (136-145)
[2018-09-06 15:24] LABS: ALANINE AMINOTRANSFERASE 30 U/L (12-78); ALBUMIN 3.8 g/dL (3.4-5.0); ALKALINE PHOSPHATASE 93 U/L (46-116); ASPARTATE AMINOTRANSFERASE 22 U/L (15-37); BILIRUBIN,TOTAL 0.2 mg/dL (0.1-1.0); CALCIUM, TOTAL 8.7 mg/dL (8.8-10.5); CREATINE KINASE, TOTAL ONLY 365 U/L (39-308); GLOMERULAR FILTR. RATE CALC > 60 mL/min (>60); TOTAL PROTEIN, SERUM 6.5 g/dL (6.4-8.2)
[2018-09-06 15:38] LABS: UREA NITROGEN, BLOOD 14 mg/dL (7-18)
[2018-09-06] MEDS ORDERED: 0.9% SODIUM CHLORIDE 10 ML SYRINGE IVP PRN (16:00)
[2018-09-06] MEDS ORDERED: ACETAMINOPHEN 325 MG TABLET PO PRN ×2 (16:00→16:30)
[2018-09-06] MEDS ORDERED: ZOLPIDEM TARTRATE 5 MG TABLET PO PRN (16:30)
[2018-09-06] MEDS ORDERED: ONDANSETRON HCL 4 MG/2 ML VIAL IVP PRN (16:30)
[2018-09-06] MEDS ORDERED: BISACODYL 10 MG RECTAL RECTAL SUPPOSITORY PR PRN (16:30)
[2018-09-06] MEDS ORDERED: MAGNESIUM HYDROXIDE SUSPENSION 30 ML UDCUP PO PRN (16:30)
[2018-09-06] MEDS ORDERED: SUMAtriptan SUCCINATE 25 MG TABLET PO PRN (16:30)
[2018-09-06 17:34] VITALS: BP 153/100
[2018-09-06] MEDS ORDERED: PNEUMOCOCCAL VACCINE POLYVALENT 0.5 ML VIAL [PPSV23] IM ONE (18:45)
[2018-09-06 19:42] VITALS: BP 163/102
[2018-09-06] MEDS: DOCUSATE SODIUM 100 MG CAPSULE PO SCH (20:44)
[2018-09-06] MEDS: HYDROCHLOROTHIAZIDE 25 MG TABLET PO SCH (20:44)
[2018-09-06] MEDS: NIFEdipine 60 MG ER TABLET PO SCH (20:44)
[2018-09-06] MEDS ORDERED: POTASSIUM CHLORIDE 20 MEQ ER TABLET PO ONE (21:15)
[2018-09-07] VITALS: BP 133/103
[2018-09-07] MEDS: HEPARIN SODIUM,PORCINE 5,000 UNITS/ML VIAL SQ SCH ×3 (00:03→09:07)
[2018-09-07] MEDS: NIFEdipine 60 MG ER TABLET PO SCH ×2 (00:03→09:05)
[2018-09-07] MEDS: BUTALBITAL/ACETAMINOPHEN/CAFFEINE 50-325-40 MG TABLET PO PRN ×2 (00:12→09:29)
[2018-09-07 05:03] VITALS: BP 137/77
[2018-09-07 06:34] LABS: BASOPHILS % (AUTO) 0.4 % (0.0-2.0); EOSINOPHILS % (AUTO) 1.4 % (1.0-6.0); HEMATOCRIT 38.2 % (41-53); HEMOGLOBIN 12.4 g/dL (13.5-17.5); LYMPHOCYTES # (AUTO) 1.8 K/uL (1.0-4.8); LYMPHOCYTES % (AUTO) 29.9 % (22.0-44.0); MEAN CORPUSCULAR HEMOGLOBIN 27.9 pg (26.0-34.0); MEAN CORPUSCULAR HGB CONC 32.5 G/dL (31.0-37.0); MEAN CORPUSCULAR VOLUME 86 fL (80-100); MONOCYTES # (AUTO) 0.4 K/uL (0.1-1.0); MONOCYTES % (AUTO) 7.1 % (2.0-9.0); NEUTROPHILS # (AUTO) 3.6 K/uL (1.8-7.7); NEUTROPHILS % (AUTO) 61.2 % (40.0-70.0); PLATELET COUNT (AUTO) 113 K/uL (150-450); RED BLOOD CELL COUNT(AUTO) 4.45 MIL/uL (4.50-5.90); RED CELL DISTRIBUTION WIDTH 15.1 % (11.5-14.5)
[2018-09-07 06:40] LABS: ALANINE AMINOTRANSFERASE 30 U/L (12-78); ALBUMIN 3.6 g/dL (3.4-5.0); ALKALINE PHOSPHATASE 92 U/L (46-116); ANION GAP 11 mmol/L (8-16); ASPARTATE AMINOTRANSFERASE 24 U/L (15-37); BILIRUBIN,TOTAL 0.3 mg/dL (0.1-1.0); CALCIUM, TOTAL 8.7 mg/dL (8.8-10.5); CARBON DIOXIDE 22 mmol/L (22-29); CHLORIDE 103 mmol/L (98-107); CREATININE 1.28 mg/dL (0.60-1.30); GLOMERULAR FILTR. RATE CALC > 60 mL/min (>60); GLUCOSE,RANDOM 93 mg/dL (70-110); POTASSIUM 3.9 mmol/L (3.5-5.1); SODIUM SERUM 136 mmol/L (136-145); TOTAL PROTEIN, SERUM 6.4 g/dL (6.4-8.2); UREA NITROGEN, BLOOD 16 mg/dL (7-18)
[2018-09-07 08:16] VITALS: BP 146/87
[2018-09-07 08:36] LABS: PLATELET MORPHOLOGY COMMENT GIANT PLTS PRESENT
[2018-09-07] MEDS ORDERED: CLOPIDOGREL BISULFATE 75 MG TABLET PO SCH (09:00)
[2018-09-07] MEDS ORDERED: PANTOPRAZOLE SODIUM 40 MG DR TABLET PO SCH (09:00)
[2018-09-07] MEDS ORDERED: ASPIRIN 81 MG CHEWABLE TABLET PO SCH (09:00)
[2018-09-07] MEDS ORDERED: METOPROLOL SUCCINATE 50 MG ER TABLET PO SCH (09:00)
[2018-09-07] MEDS: DOCUSATE SODIUM 100 MG CAPSULE PO SCH (09:02)
[2018-09-07] MEDS: HYDROCHLOROTHIAZIDE 25 MG TABLET PO SCH (09:05)
[2018-09-07] MEDS ORDERED: HYDR25TA84 PO (10:29)
[2018-09-07 12:00] VITALS: BP 139/90
== END 2018-09-07 10:50 | disposition home or self-care (01) | DRG 243 ==
LOC: EMS 12:54 → 5S 16:15
PROVIDERS: ADMIT Internal Medicine; ATTEND Internal Medicine
DX: K21.9 Gastro-esophageal reflux disease without esophagitis (principal); D64.9 Anemia, unspecified; E87.6 Hypokalemia; F17.200 Nicotine dependence, unspecified, uncomplicated; G43.909 Migraine, unspecified, not intractable, without status migrainosus; I25.10 Atherosclerotic heart disease of native coronary artery without angina pectoris; R00.1 Bradycardia, unspecified; I10 Essential (primary) hypertension; F41.9 Anxiety disorder, unspecified; Z88.6 Allergy status to analgesic agent; Z91.19 Patient's noncompliance with other medical treatment and regimen; Z95.5 Presence of coronary angioplasty implant and graft; Z88.8 Allergy status to other drugs, medicaments and biological substances; Z79.02 Long term (current) use of antithrombotics/antiplatelets; Z79.82 Long term (current) use of aspirin; Z79.899 Other long term (current) drug therapy; Z86.718 Personal history of other venous thrombosis and embolism
CPT/HCPCS: 93005; 93306; G0378; J1644

== ENCOUNTER 2018-09-25 12:38 | Inpatient (IN) | payer OTHER ==
[~2018-09-25] VITALS: Ht 167.6 cm; Wt 79.0 kg
[~2018-09-25 12:38] MED LIST changes: +CLON.3 PO; -CLON0.3T3 PO; +HYDR25TA84 PO
[2018-09-25 12:59] LABS: BASOPHILS % (AUTO) 0.2 % (0.0-2.0); EOSINOPHILS % (AUTO) 0.1 % (1.0-6.0); HEMATOCRIT 37.5 % (41-53); HEMOGLOBIN 12.4 g/dL (13.5-17.5); LYMPHOCYTES # (AUTO) 1.5 K/uL (1.0-4.8); LYMPHOCYTES % (AUTO) 8.5 % (22.0-44.0); MEAN CORPUSCULAR HEMOGLOBIN 27.9 pg (26.0-34.0); MEAN CORPUSCULAR VOLUME 84 fL (80-100); MONOCYTES # (AUTO) 0.5 K/uL (0.1-1.0); MONOCYTES % (AUTO) 3.1 % (2.0-9.0); NEUTROPHILS # (AUTO) 15.2 K/uL (1.8-7.7); PLATELET COUNT (AUTO) 134 K/uL (150-450); RED BLOOD CELL COUNT(AUTO) 4.45 MIL/uL (4.50-5.90)
[2018-09-25 13:02] LABS: NEUTROPHILS % (AUTO) 88.1 % (40.0-70.0)
[2018-09-25 13:07] LABS: ANION GAP 13 mmol/L (8-16); CALCIUM, TOTAL 9.3 mg/dL (8.8-10.5); CARBON DIOXIDE 23 mmol/L (22-29); CHLORIDE 103 mmol/L (98-107); CREATININE 1.27 mg/dL (0.60-1.30); GLOMERULAR FILTR. RATE CALC > 60 mL/min (>60); GLUCOSE,RANDOM 103 mg/dL (70-110); POTASSIUM 3.5 mmol/L (3.5-5.1); SODIUM SERUM 139 mmol/L (136-145); UREA NITROGEN, BLOOD 10 mg/dL (7-18)
[2018-09-25 13:11] LABS: PROTHROMBIN TIME 10.2 SEC (9.4-11.6)
[2018-09-25 13:13] LABS: ALANINE AMINOTRANSFERASE 21 U/L (12-78); ALBUMIN 3.9 g/dL (3.4-5.0); ALKALINE PHOSPHATASE 97 U/L (46-116); ASPARTATE AMINOTRANSFERASE 25 U/L (15-37); BILIRUBIN,TOTAL 0.3 mg/dL (0.1-1.0); TOTAL PROTEIN, SERUM 6.9 g/dL (6.4-8.2)
[2018-09-25] MEDS ORDERED: PB/HYOSCY/ATR/SCOP/LIDO/MAALOX 55 ML BOTTLE PO ONE (14:45)
[2018-09-25] MEDS ORDERED: 0.9% SODIUM CHLORIDE 10 ML SYRINGE IVP PRN (16:30)
[2018-09-25] MEDS ORDERED: NITROGLYCERIN 2% (1 GM=INCH) PACKET TP ONE (16:30)
[2018-09-25] MEDS ORDERED: ASPIRIN 325 MG TABLET PO ONE (16:30)
[2018-09-25] MEDS ORDERED: ONDANSETRON HCL 4 MG/2 ML VIAL IVP PRN (16:30)
[2018-09-25] MEDS ORDERED: ONDANSETRON HCL 4 MG/2 ML VIAL IVP ONE (16:30)
[2018-09-25] MEDS ORDERED: ACETAMINOPHEN 325 MG TABLET PO PRN ×2 (16:30→20:15)
[2018-09-25] MEDS ORDERED: MORPHINE SULFATE 2 MG/ML SYRINGE IVP ONE (17:15)
[2018-09-25] MEDS ORDERED: DIAZEPAM 5 MG TABLET PO ONE ×2 (17:15→21:00)
[2018-09-25] MEDS ORDERED: BUTALBITAL/ACETAMINOPHEN/CAFFEINE 50-325-40 MG TABLET PO PRN (17:15)
[2018-09-25] MEDS ORDERED: CLON.3 PO (17:36)
[2018-09-25] MEDS ORDERED: SERT50TA12 PO (17:37)
[2018-09-25 20:12] VITALS: BP 155/94
[2018-09-25] MEDS ORDERED: ALBUTEROL SULFATE 2.5 MG/0.5 ML NEB SOLUTION NEB PRN (20:15)
[2018-09-25] MEDS ORDERED: CloNIDine HCL 0.1 MG TABLET PO ONE (21:00)
[2018-09-25] MEDS ORDERED: NIFEdipine 60 MG ER TABLET PO ONE (21:00)
[2018-09-25] MEDS ORDERED: HYDROCHLOROTHIAZIDE 25 MG TABLET PO ONE (21:00)
[2018-09-25] MEDS ORDERED: HydrALAZINE HCL 25 MG TABLET PO ONE (21:00)
[2018-09-25] MEDS: DOCUSATE SODIUM 100 MG CAPSULE PO SCH (21:04)
[2018-09-25] MEDS: HydrALAZINE HCL 25 MG TABLET PO SCH (21:04)
[2018-09-25] MEDS: BUTALBITAL/ACETAMINOPHEN/CAFFEINE 50-325-40 MG TABLET PO PRN (21:10)
[2018-09-26] VITALS (7 sets, daily range): BP systolic 147–182; BP diastolic 85–110
[2018-09-26] MEDS: OxyCODONE HCL/ACETAMINOPHEN 5-325 MG TABLET PO PRN (05:17)
[2018-09-26 05:53] LABS: BASOPHILS % (AUTO) 0.3 % (0.0-2.0); EOSINOPHILS % (AUTO) 1.6 % (1.0-6.0); HEMATOCRIT 37.2 % (41-53); HEMOGLOBIN 12.4 g/dL (13.5-17.5); LYMPHOCYTES # (AUTO) 1.7 K/uL (1.0-4.8); LYMPHOCYTES % (AUTO) 25.1 % (22.0-44.0); MEAN CORPUSCULAR HEMOGLOBIN 28.2 pg (26.0-34.0); MEAN CORPUSCULAR HGB CONC 33.4 G/dL (31.0-37.0); MEAN CORPUSCULAR VOLUME 85 fL (80-100); MONOCYTES # (AUTO) 0.4 K/uL (0.1-1.0); MONOCYTES % (AUTO) 5.1 % (2.0-9.0); NEUTROPHILS # (AUTO) 4.6 K/uL (1.8-7.7); NEUTROPHILS % (AUTO) 67.9 % (40.0-70.0); PLATELET COUNT (AUTO) 126 K/uL (150-450); RED CELL DISTRIBUTION WIDTH 14.9 % (11.5-14.5)
[2018-09-26 06:22] LABS: ALANINE AMINOTRANSFERASE 164 U/L (12-78); ALBUMIN 3.4 g/dL (3.4-5.0); ALKALINE PHOSPHATASE 147 U/L (46-116); ANION GAP 10 mmol/L (8-16); ASPARTATE AMINOTRANSFERASE 173 U/L (15-37); BILIRUBIN,TOTAL 0.2 mg/dL (0.1-1.0); CALCIUM, TOTAL 8.8 mg/dL (8.8-10.5); CARBON DIOXIDE 25 mmol/L (22-29); CHLORIDE 105 mmol/L (98-107); CREATININE 1.27 mg/dL (0.60-1.30); GLOMERULAR FILTR. RATE CALC > 60 mL/min (>60); GLUCOSE,RANDOM 90 mg/dL (70-110); POTASSIUM 3.6 mmol/L (3.5-5.1); SODIUM SERUM 140 mmol/L (136-145); TOTAL PROTEIN, SERUM 6.8 g/dL (6.4-8.2); UREA NITROGEN, BLOOD 11 mg/dL (7-18)
[2018-09-26 07:21] LABS: AMPHET/METH SCREEN,URINE NEGATIVE (NEGATIVE); BARBITURATE SCREEN, URINE POSITIVE (NEGATIVE); BENZODIAZEPINES SCREEN,URINE POSITIVE (NEGATIVE); CANNABINOID SCREEN,URINE POSITIVE (NEGATIVE); COCAINE SCREEN,URINE NEGATIVE (NEGATIVE); METHADONE SCREEN, URINE NEGATIVE (NEGATIVE); OPIATE SCREEN,URINE POSITIVE (NEGATIVE)
[2018-09-26 07:23] LABS: PHENCYCLIDINE SCREEN,URINE NEGATIVE (NEGATIVE)
[2018-09-26] MEDS: HydrALAZINE HCL 25 MG TABLET PO SCH ×3 (08:51→21:04)
[2018-09-26] MEDS: FAMOTIDINE 20 MG TABLET PO SCH (08:51)
[2018-09-26] MEDS: DOCUSATE SODIUM 100 MG CAPSULE PO SCH ×2 (08:52→21:05)
[2018-09-26] MEDS: METOPROLOL SUCCINATE 50 MG ER TABLET PO SCH (08:55)
[2018-09-26] MEDS: SERTRALINE HCL 50 MG TABLET PO SCH (08:56)
[2018-09-26] MEDS ORDERED: METOPROLOL SUCCINATE 50 MG ER TABLET PO ONE (09:00)
[2018-09-26] MEDS ORDERED: ASPIRIN 81 MG CHEWABLE TABLET PO SCH (09:00)
[2018-09-26] MEDS ORDERED: CLOPIDOGREL BISULFATE 75 MG TABLET PO ONE (09:00)
[2018-09-26] MEDS ORDERED: CLOPIDOGREL BISULFATE 75 MG TABLET PO SCH (09:00)
[2018-09-26] MEDS: BUTALBITAL/ACETAMINOPHEN/CAFFEINE 50-325-40 MG TABLET PO PRN (16:36)
[2018-09-27] VITALS (13 sets, daily range): BP systolic 152–207; BP diastolic 74–129
[2018-09-27] MEDS: BUTALBITAL/ACETAMINOPHEN/CAFFEINE 50-325-40 MG TABLET PO PRN ×2 (01:01→18:31)
[2018-09-27] MEDS: OxyCODONE HCL/ACETAMINOPHEN 5-325 MG TABLET PO PRN ×2 (06:29→12:26)
[2018-09-27] MEDS ORDERED: HEPARIN SODIUM 1000 UNITS/NS 1,000 ML ONE ×2 (08:20→10:13)
[2018-09-27] MEDS ORDERED: SODIUM BICARBONATE 50 MEQ/50 ML VIAL ONE (08:20)
[2018-09-27] MEDS ORDERED: LIDOCAINE/PF 1% 30 ML VIAL ONE (08:20)
[2018-09-27] MEDS ORDERED: IOHEXOL 300 MG/ML 150 ML VIAL ONE (08:20)
[2018-09-27] MEDS: METOPROLOL SUCCINATE 50 MG ER TABLET PO SCH (08:30)
[2018-09-27] MEDS: SERTRALINE HCL 50 MG TABLET PO SCH (08:30)
[2018-09-27] MEDS: FAMOTIDINE 20 MG TABLET PO SCH (08:31)
[2018-09-27] MEDS: HydrALAZINE HCL 25 MG TABLET PO SCH (08:31)
[2018-09-27] MEDS: DOCUSATE SODIUM 100 MG CAPSULE PO SCH ×2 (09:00→20:49)
[2018-09-27] MEDS ORDERED: MIDAZOLAM HCL 2 MG/2 ML VIAL ONE (09:27)
[2018-09-27] MEDS ORDERED: FentaNYL CITRATE-PF 100 MCG/2 ML VIAL ONE (09:27)
[2018-09-27] MEDS ORDERED: SODIUM CHLORIDE 0.9% 500 ML IV ONE (09:54)
[2018-09-27] MEDS ORDERED: HEPARIN SODIUM 2,000 UNITS in HEPARIN SODIUM 1000 UNITS/NS 1,000 ML IARTER ONE (09:54)
[2018-09-27] MEDS ORDERED: IOHEXOL 300 MG/ML 150 ML VIAL IARTER ONE (10:00)
[2018-09-27] MEDS ORDERED: LIDOCAINE 1% 30 ML/SOD BICARB 8.4% 4 ML SQ ONE (10:00)
[2018-09-27] MEDS ORDERED: MIDAZOLAM HCL 2 MG/2 ML VIAL IVP ONE ×2 (10:00→10:15)
[2018-09-27] MEDS ORDERED: FentaNYL CITRATE-PF 100 MCG/2 ML VIAL IVP ONE ×2 (10:00→10:15)
[2018-09-27] MEDS ORDERED: ASPIRIN 325 MG TABLET ONE (10:09)
[2018-09-27] MEDS ORDERED: CLOPIDOGREL BISULFATE 300 MG TABLET ONE (10:09)
[2018-09-27] MEDS ORDERED: VERAPAMIL HCL 2.5 MG/ML 2 ML VIAL ONE (10:13)
[2018-09-27] MEDS ORDERED: IOHEXOL 300 MG/ML 50 ML VIAL ONE (10:13)
[2018-09-27] MEDS ORDERED: IOHEXOL 300 MG/ML 100 ML VIAL ONE (10:13)
[2018-09-27] MEDS ORDERED: HydrALAZINE HCL 20 MG/ML VIAL ONE (10:13)
[2018-09-27] MEDS ORDERED: NITROGLYCERIN 50 MG/D5% WATER 250 ML ONE (10:13)
[2018-09-27] MEDS ORDERED: HydrALAZINE HCL 20 MG/ML VIAL IVP ONE (10:15)
[2018-09-27] MEDS ORDERED: HEPARIN SODIUM,PORCINE 5,000 UNITS/ML VIAL IVP ONE ×2 (10:15→11:00)
[2018-09-27] MEDS ORDERED: IOHEXOL 300 MG/ML 100 ML VIAL IARTER ONE (10:15)
[2018-09-27] MEDS ORDERED: CLOPIDOGREL BISULFATE 300 MG TABLET PO ONE (10:15)
[2018-09-27] MEDS ORDERED: IOHEXOL 300 MG/ML 50 ML VIAL IARTER ONE (10:15)
[2018-09-27] MEDS ORDERED: ASPIRIN 325 MG TABLET PO ONE (10:15)
[2018-09-27] MEDS ORDERED: NITROGLYCERIN/D5W 50 MG/250 ML IV BOTTLE ICOR ONE (10:30)
[2018-09-27] MEDS ORDERED: VERAPAMIL HCL 2.5 MG/ML 2 ML VIAL ICOR ONE (10:30)
[2018-09-27] MEDS: HydrALAZINE HCL 20 MG/ML VIAL IVP PRN (12:46)
[2018-09-27] MEDS: HydrALAZINE HCL 50 MG TABLET PO SCH ×2 (16:05→20:49)
[2018-09-27] MEDS ORDERED: ATORVASTATIN CALCIUM 40 MG TABLET PO SCH (21:00)
[2018-09-28 00:08] VITALS: BP 178/99
[2018-09-28] MEDS: BUTALBITAL/ACETAMINOPHEN/CAFFEINE 50-325-40 MG TABLET PO PRN (00:08)
[2018-09-28 04:00] VITALS: BP 176/90
[2018-09-28 05:13] LABS: BASOPHILS % (AUTO) 0.3 % (0.0-2.0); HEMATOCRIT 36.5 % (41-53); LYMPHOCYTES # (AUTO) 1.8 K/uL (1.0-4.8); LYMPHOCYTES % (AUTO) 23.5 % (22.0-44.0); MEAN CORPUSCULAR HEMOGLOBIN 27.8 pg (26.0-34.0); MEAN CORPUSCULAR HGB CONC 32.9 G/dL (31.0-37.0); MEAN CORPUSCULAR VOLUME 84 fL (80-100); MONOCYTES # (AUTO) 0.4 K/uL (0.1-1.0); MONOCYTES % (AUTO) 5.6 % (2.0-9.0); NEUTROPHILS # (AUTO) 5.3 K/uL (1.8-7.7); NEUTROPHILS % (AUTO) 69.6 % (40.0-70.0); PLATELET COUNT (AUTO) 128 K/uL (150-450); RED BLOOD CELL COUNT(AUTO) 4.32 MIL/uL (4.50-5.90); RED CELL DISTRIBUTION WIDTH 14.7 % (11.5-14.5)
[2018-09-28] MEDS: HydrALAZINE HCL 20 MG/ML VIAL IVP PRN (05:22)
[2018-09-28 05:37] LABS: ALANINE AMINOTRANSFERASE 74 U/L (12-78); ALBUMIN 3.4 g/dL (3.4-5.0); ALKALINE PHOSPHATASE 118 U/L (46-116); ANION GAP 11 mmol/L (8-16); ASPARTATE AMINOTRANSFERASE 41 U/L (15-37); BILIRUBIN,TOTAL 0.2 mg/dL (0.1-1.0); CALCIUM, TOTAL 8.9 mg/dL (8.8-10.5); CARBON DIOXIDE 23 mmol/L (22-29); CHLORIDE 103 mmol/L (98-107); CREATININE 1.23 mg/dL (0.60-1.30); GLOMERULAR FILTR. RATE CALC > 60 mL/min (>60); GLUCOSE,RANDOM 99 mg/dL (70-110); POTASSIUM 3.4 mmol/L (3.5-5.1); SODIUM SERUM 137 mmol/L (136-145); TOTAL PROTEIN, SERUM 6.3 g/dL (6.4-8.2); UREA NITROGEN, BLOOD 17 mg/dL (7-18)
[2018-09-28 08:00] VITALS: BP 181/113
[2018-09-28] MEDS: SERTRALINE HCL 50 MG TABLET PO SCH (08:42)
[2018-09-28] MEDS: FAMOTIDINE 20 MG TABLET PO SCH (08:42)
[2018-09-28] MEDS: HydrALAZINE HCL 50 MG TABLET PO SCH (08:42)
[2018-09-28] MEDS ORDERED: CLOPIDOGREL BISULFATE 75 MG TABLET PO SCH (09:00)
[2018-09-28] MEDS ORDERED: ASPIRIN 81 MG CHEWABLE TABLET PO SCH (09:00)
[2018-09-28] MEDS ORDERED: METOPROLOL SUCCINATE 25 MG ER TABLET PO SCH (09:00)
[2018-09-28] MEDS: DOCUSATE SODIUM 100 MG CAPSULE PO SCH (09:00)
[2018-09-28] MEDS ORDERED: AmLODIPine BESYLATE 5 MG TABLET PO SCH (11:30)
[2018-09-28] MEDS ORDERED: METO25TA3 PO (11:35)
[2018-09-28] MEDS ORDERED: AMLO5TAB4 PO (11:36)
== END 2018-09-28 12:15 | disposition home or self-care (01) | DRG 174 ==
LOC: EMS 12:40 → 5N 16:52 → ICU 09-27 11:26
PROVIDERS: ADMIT Internal Medicine; ATTEND Internal Medicine
PROC: 027035Z Dilation of Coronary Artery, One Artery with Two Drug-eluting Intraluminal Devices, Percutaneous Approach (ICD-10-PCS; principal; 2018-09-27)
PROC: 4A023N7 Measurement of Cardiac Sampling and Pressure, Left Heart, Percutaneous Approach (ICD-10-PCS; 2018-09-27)
PROC: B2111ZZ Fluoroscopy of Multiple Coronary Arteries using Low Osmolar Contrast (ICD-10-PCS; 2018-09-27)
PROC: B2151ZZ Fluoroscopy of Left Heart using Low Osmolar Contrast (ICD-10-PCS; 2018-09-27)
DX: I21.4 Non-ST elevation (NSTEMI) myocardial infarction (principal); E78.5 Hyperlipidemia, unspecified; I25.10 Atherosclerotic heart disease of native coronary artery without angina pectoris; F17.200 Nicotine dependence, unspecified, uncomplicated; G43.909 Migraine, unspecified, not intractable, without status migrainosus; I10 Essential (primary) hypertension; R74.0 Nonspecific elevation of levels of transaminase and lactic acid dehydrogenase [LDH]; J44.9 Chronic obstructive pulmonary disease, unspecified; F41.9 Anxiety disorder, unspecified; F12.90 Cannabis use, unspecified, uncomplicated; R00.1 Bradycardia, unspecified; K21.9 Gastro-esophageal reflux disease without esophagitis; Z86.718 Personal history of other venous thrombosis and embolism; Z91.19 Patient's noncompliance with other medical treatment and regimen; Z95.5 Presence of coronary angioplasty implant and graft
CPT/HCPCS: 80307; 87081; 92920; 92928; 93005; 96374; 96375; 99291; G0378; J0360; J1644; J2250; J2270; J2405; J3010; J3490; Q9967

== ENCOUNTER 2019-03-11 11:10 | Emergency (ER) | payer OTHER ==
[~2019-03-11] VITALS: Ht 167.6 cm; Wt 68.2 kg
[~2019-03-11 11:10] MED LIST changes: +AMLO5TAB4 PO; -DOXE50 PO; -METO-558 PO; +METO25TA3 PO; -NIFE60TA71 PO; -SERT100T12 PO; +SERT50TA12 PO
[2019-03-11] MEDS ORDERED: LOSA50TA64 PO (11:49)
[2019-03-11] MEDS ORDERED: AMLO10TA7 PO (11:49)
[2019-03-11] MEDS ORDERED: METO-391 PO (11:49)
[2019-03-11] MEDS ORDERED: HYDR-2924 PO (11:49)
[2019-03-11] MEDS ORDERED: AmLODIPine BESYLATE 5 MG TABLET PO ONE (12:30)
[2019-03-11] MEDS ORDERED: LOSARTAN POTASSIUM 50 MG TABLET PO ONE (12:30)
[2019-03-11] MEDS ORDERED: METOPROLOL TARTRATE 50 MG TABLET PO ONE (12:30)
[2019-03-11] MEDS ORDERED: CloNIDine HCL 0.1 MG TABLET PO ONE (12:30)
[2019-03-11] MEDS ORDERED: HydrALAZINE HCL 25 MG TABLET PO ONE (12:30)
[2019-03-11] MEDS ORDERED: DOXYCYCLINE HYCLATE 100 MG CAPSULE PO ONE (12:45)
[2019-03-11 13:45] VITALS: BP 148/97
== END 2019-03-11 14:05 | disposition home or self-care (01) ==
LOC: EMS 11:11
DX: L03.116 Cellulitis of left lower limb (principal); L30.9 Dermatitis, unspecified; I10 Essential (primary) hypertension; F41.9 Anxiety disorder, unspecified; J40 Bronchitis, not specified as acute or chronic; F12.90 Cannabis use, unspecified, uncomplicated; F17.210 Nicotine dependence, cigarettes, uncomplicated; Z88.5 Allergy status to narcotic agent; Z88.8 Allergy status to other drugs, medicaments and biological substances; Z79.899 Other long term (current) drug therapy; Z79.82 Long term (current) use of aspirin

== ENCOUNTER 2020-03-23 12:20 | Emergency (ER) | payer OTHER ==
[~2020-03-23] VITALS: Ht 167.6 cm; Wt 68.2 kg
[~2020-03-23 12:20] MED LIST changes: +AMLO-258 PO; -AMLO5TAB4 PO; +ASPI-728 PO; -ASPI81 PO; -CLON.3 PO; +CLON0.3T PO; +CLOP-31 PO; -CLOP75TA3 PO; +HYDR-1475 PO; +HYDR-2924 PO; -HYDR25TA PO; -HYDR25TA84 PO; +LOSA50TA37 PO; +METO-391 PO; -METO25TA3 PO
[2020-03-23] MEDS ORDERED: HYDROCODONE/ACETAMINOPHEN 5-325 MG TABLET PO ONE (13:00)
[2020-03-23] MEDS ORDERED: CloNIDine HCL 0.1 MG TABLET PO ONE (13:15)
[2020-03-23] MEDS ORDERED: HydrALAZINE HCL 25 MG TABLET PO ONE (13:15)
[2020-03-23 13:35] LABS: BASOPHILS % (AUTO) 0.4 % (0.0-2.0); EOSINOPHILS % (AUTO) 0.5 % (1.0-6.0); HEMATOCRIT 37.9 % (41-53); HEMOGLOBIN 12.6 g/dL (13.5-17.5); LYMPHOCYTES # (AUTO) 1.6 K/uL (1.0-4.8); LYMPHOCYTES % (AUTO) 18.4 % (22.0-44.0); MEAN CORPUSCULAR HEMOGLOBIN 28.1 pg (26.0-34.0); MEAN CORPUSCULAR HGB CONC 33.2 G/dL (31.0-37.0); MEAN CORPUSCULAR VOLUME 85 fL (80-100); MONOCYTES # (AUTO) 0.4 K/uL (0.1-1.0); MONOCYTES % (AUTO) 4.8 % (2.0-9.0); NEUTROPHILS # (AUTO) 6.6 K/uL (1.8-7.7); NEUTROPHILS % (AUTO) 75.9 % (40.0-70.0); PLATELET COUNT (AUTO) 136 K/uL (150-450); RED BLOOD CELL COUNT(AUTO) 4.47 MIL/uL (4.50-5.90); RED CELL DISTRIBUTION WIDTH 15.3 % (11.5-14.5)
[2020-03-23 13:55] LABS: ANION GAP 12 mmol/L (8-16); CALCIUM, TOTAL 8.6 mg/dL (8.8-10.5); CARBON DIOXIDE 22 mmol/L (22-29); CHLORIDE 106 mmol/L (98-107); CREATININE 1.35 mg/dL (0.60-1.30); GLOMERULAR FILTR. RATE CALC > 60 mL/min (>60); GLUCOSE,RANDOM 87 mg/dL (70-110); POTASSIUM 3.5 mmol/L (3.5-5.1); SODIUM SERUM 140 mmol/L (136-145); UREA NITROGEN, BLOOD 12 mg/dL (7-18)
[2020-03-23 14:02] LABS: ALANINE AMINOTRANSFERASE 32 U/L (12-78); ALBUMIN 3.8 g/dL (3.4-5.0); ALKALINE PHOSPHATASE 87 U/L (46-116); ASPARTATE AMINOTRANSFERASE 33 U/L (15-37); BILIRUBIN,TOTAL 0.2 mg/dL (0.1-1.0); TOTAL PROTEIN, SERUM 6.6 g/dL (6.4-8.2)
[2020-03-23] MEDS ORDERED: ONDANSETRON HCL 4 MG TABLET PO ONE (14:15)
[2020-03-23 15:08] VITALS: BP 177/112
== END 2020-03-23 15:34 | disposition home or self-care (01) ==
LOC: EMS 12:22
DX: S62.622B Displaced fracture of middle phalanx of right middle finger, initial encounter for open fracture (principal); I10 Essential (primary) hypertension; F17.210 Nicotine dependence, cigarettes, uncomplicated; F12.90 Cannabis use, unspecified, uncomplicated; G43.909 Migraine, unspecified, not intractable, without status migrainosus; Z88.5 Allergy status to narcotic agent; Z88.6 Allergy status to analgesic agent; W23.0XXA Caught, crushed, jammed, or pinched between moving objects, initial encounter; Y93.89 Activity, other specified; Y92.89 Other specified places as the place of occurrence of the external cause; Y99.8 Other external cause status
CPT/HCPCS: 29130; 36415; 73130; 80053; 84484; 85025; 93005; 99285; Q0162

== ENCOUNTER 2021-12-04 21:20 | Emergency (ER) | payer OTHER ==
[~2021-12-04] VITALS: Ht 167.6 cm; Wt 73.6 kg
[~2021-12-04 21:20] MED LIST changes: +ASPI-1450 PO; -ASPI-728 PO; -CLOP-31 PO; +CLOP75TA60 PO; -HYDR-1475 PO; -HYDR-2924 PO; +HYDR-4870 PO; +HYDR50TA36 PO; +LOSA-382 PO; -LOSA50TA37 PO; +SERT-158 PO; -SERT50TA12 PO
[2021-12-04 21:21] VITALS: BP 201/125
[2021-12-04] MEDS ORDERED: BUTA-256 PO (21:28)
[2021-12-04] MEDS ORDERED: ASPI-1444 PO (21:28)
[2021-12-04] MEDS ORDERED: PRAV20TA4 PO (21:28)
[2021-12-04] MEDS ORDERED: ISOS30TA92 PO (21:28)
[2021-12-04] MEDS ORDERED: IBUP-2077 PO (21:28)
[2021-12-04] MEDS ORDERED: HALOPERIDOL LACTATE 5 MG/ML VIAL IVP ONE (23:00)
[2021-12-04] MEDS ORDERED: DiphenhydrAMINE HCL 50 MG/ML VIAL IVP ONE (23:00)
[2021-12-04] MEDS ORDERED: SODIUM CHLORIDE 0.9% 500 ML IV ONE (23:00)
[2021-12-04 23:03] LABS: BASOPHILS % (AUTO) 0.3 % (0.0-2.0); EOSINOPHILS % (AUTO) 2.1 % (1.0-6.0); HEMATOCRIT 37.1 % (41-53); HEMOGLOBIN 12.1 g/dL (13.5-17.5); LYMPHOCYTES # (AUTO) 1.6 K/uL (1.0-4.8); LYMPHOCYTES % (AUTO) 19.3 % (22.0-44.0); MEAN CORPUSCULAR HEMOGLOBIN 27.1 pg (26.0-34.0); MEAN CORPUSCULAR HGB CONC 32.6 G/dL (31.0-37.0); MEAN CORPUSCULAR VOLUME 83 fL (80-100); MONOCYTES # (AUTO) 0.6 K/uL (0.1-1.0); NEUTROPHILS # (AUTO) 6.1 K/uL (1.8-7.7); NEUTROPHILS % (AUTO) 71.3 % (40.0-70.0); PLATELET COUNT (AUTO) 311 K/uL (150-450); RED BLOOD CELL COUNT(AUTO) 4.46 MIL/uL (4.50-5.90); RED CELL DISTRIBUTION WIDTH 14.4 % (11.5-14.5)
[2021-12-04 23:11] LABS: CALCIUM, TOTAL 9.1 mg/dL (8.8-10.5); CREATININE 1.58 mg/dL (0.60-1.30); POTASSIUM 3.7 mmol/L (3.5-5.1)
[2021-12-04 23:16] LABS: BILIRUBIN,TOTAL 0.2 mg/dL (0.1-1.0); TOTAL PROTEIN, SERUM 7.2 g/dL (6.4-8.2)
== END 2021-12-05 00:17 | disposition left against medical advice (07) ==
LOC: EMS 21:20
DX: G43.909 Migraine, unspecified, not intractable, without status migrainosus (principal); F41.9 Anxiety disorder, unspecified; F10.20 Alcohol dependence, uncomplicated; F12.90 Cannabis use, unspecified, uncomplicated; F17.210 Nicotine dependence, cigarettes, uncomplicated; I10 Essential (primary) hypertension; Z88.5 Allergy status to narcotic agent; Z86.718 Personal history of other venous thrombosis and embolism
CPT/HCPCS: 36415; 80053; 85025; 96374; 96375; 99284; J1200; J1630

== ENCOUNTER 2022-02-02 12:28 | Inpatient (IN) | payer OTHER ==
[~2022-02-02] VITALS: Ht 170.2 cm; Wt 70.3 kg
[~2022-02-02 12:28] MED LIST changes: +ASPI-1444 PO; -ASPI-1450 PO; +BUTA-256 PO; -BUTA1CAP53 PO; -HYDR-4870 PO; +HYDR25TA2 PO; +IBUP-2077 PO; +ISOS30TA92 PO; +PRAV20TA4 PO
[2022-02-02 13:08] LABS: BASOPHILS % (AUTO) 0.5 % (0.0-2.0); EOSINOPHILS % (AUTO) 2.3 % (1.0-6.0); HEMATOCRIT 34.9 % (41-53); HEMOGLOBIN 11.5 g/dL (13.5-17.5); LYMPHOCYTES # (AUTO) 1.7 K/uL (1.0-4.8); LYMPHOCYTES % (AUTO) 19.2 % (22.0-44.0); MEAN CORPUSCULAR HEMOGLOBIN 26.9 pg (26.0-34.0); MEAN CORPUSCULAR HGB CONC 32.9 G/dL (31.0-37.0); MEAN CORPUSCULAR VOLUME 82 fL (80-100); MONOCYTES # (AUTO) 0.6 K/uL (0.1-1.0); MONOCYTES % (AUTO) 6.6 % (2.0-9.0); NEUTROPHILS # (AUTO) 6.5 K/uL (1.8-7.7); NEUTROPHILS % (AUTO) 71.4 % (40.0-70.0); PLATELET COUNT (AUTO) 197 K/uL (150-450); RED BLOOD CELL COUNT(AUTO) 4.27 MIL/uL (4.50-5.90); RED CELL DISTRIBUTION WIDTH 15.9 % (11.5-14.5)
[2022-02-02 13:13] LABS: COVID AG,FIA SOURCE NASAL SWAB
[2022-02-02] MEDS ORDERED: NiCARDipine HCL 25 MG in DEXTROSE 5%-WATER 240 ML IV PRN (13:15)
[2022-02-02] MEDS ORDERED: MORPHINE SULFATE 4 MG/ML SYRINGE IVP ONE (13:30)
[2022-02-02] MEDS ORDERED: ASPIRIN 81 MG CHEWABLE TABLET PO ONE (13:30)
[2022-02-02] MEDS ORDERED: ONDANSETRON HCL 4 MG/2 ML VIAL IVP ONE (13:30)
[2022-02-02] MEDS ORDERED: ONDANSETRON HCL 4 MG/2 ML VIAL IVP PRN (13:45)
[2022-02-02] MEDS ORDERED: FUROSEMIDE 40 MG/4 ML VIAL IVP ONE (13:45)
[2022-02-02] MEDS ORDERED: OxyCODONE HCL/ACETAMINOPHEN 5-325 MG TABLET PO PRN (13:45)
[2022-02-02] MEDS ORDERED: ACETAMINOPHEN 325 MG TABLET PO PRN (13:45)
[2022-02-02] MEDS ORDERED: ALBUTEROL SULFATE 2.5 MG/0.5 ML NEB SOLUTION NEB PRN (13:45)
[2022-02-02 13:47] LABS: BILIRUBIN,TOTAL 0.2 mg/dL (0.1-1.0); CALCIUM, TOTAL 8.6 mg/dL (8.8-10.5); CREATININE 2.05 mg/dL (0.60-1.30)
[2022-02-02 13:48] LABS: ALBUMIN 3.2 g/dL (3.4-5.0); TOTAL PROTEIN, SERUM 6.8 g/dL (6.4-8.2)
[2022-02-02] MEDS ORDERED: FUROSEMIDE 20 MG/2 ML VIAL IVP SCH (14:00)
[2022-02-02] MEDS: LOSARTAN POTASSIUM 50 MG TABLET PO SCH ×2 (14:11→20:08)
[2022-02-02] MEDS: ATORVASTATIN CALCIUM 40 MG TABLET PO SCH (14:11)
[2022-02-02] MEDS ORDERED: POTASSIUM CHLORIDE 20 MEQ ER TABLET PO ONE (14:15)
[2022-02-02 15:13] LABS: APPEARANCE,URINE CLEAR (CLEAR); BILIRUBIN,URINE NEGATIVE (NEGATIVE); GLUCOSE, URINE (UA) NEGATIVE (NEGATIVE); KETONES,URINE NEGATIVE (NEGATIVE); LEUKOCYTE ESTERASE ,URINE NEGATIVE (NEGATIVE); NITRATE,URINE NEGATIVE (NEGATIVE); OCCULT BLOOD,URINE SMALL (NEGATIVE); PROTEIN,URINE 100-200,SEE CONFIRM mg/dL (NEGATIVE); SPECIFIC GRAVITIY, URINE 1.008 (1.003-1.030); UROBILINOGEN,URINE <=1.0 mg/dL (<=1.0)
[2022-02-02 15:31] LABS: SULFOSALICYLIC ACID,URINE 3+ (Negative)
[2022-02-02 15:32] LABS: BACTERIA,URINE None Seen /HPF (None Seen); RBC,URINE 0-2 /HPF (0-2); WBC,URINE 0-2 /HPF (0-5)
[2022-02-02 16:00] VITALS: BP 166/73
[2022-02-02] MEDS: LABETALOL HCL 5 MG/ML 20 ML VIAL IVP PRN ×2 (16:36→21:25)
[2022-02-02] MEDS: HEPARIN SODIUM,PORCINE 5,000 UNITS/ML VIAL SQ SCH ×2 (16:38→23:18)
[2022-02-02] MEDS: MORPHINE SULFATE 2 MG/ML SYRINGE IVP PRN (17:06)
[2022-02-02 20:00] VITALS: BP 166/70
[2022-02-02] MEDS: FUROSEMIDE 20 MG/2 ML VIAL IVP SCH (20:08)
[2022-02-02] MEDS: DOCUSATE SODIUM 100 MG CAPSULE PO SCH (20:08)
[2022-02-02] MEDS: CARVEDILOL 12.5 MG TABLET PO SCH (20:09)
[2022-02-03] VITALS: BP 165/114
[2022-02-03] MEDS: HydrALAZINE HCL 20 MG/ML VIAL IVP PRN ×5 (01:16→12:51)
[2022-02-03 04:00] VITALS: BP 188/136
[2022-02-03] MEDS: LABETALOL HCL 5 MG/ML 20 ML VIAL IVP PRN ×3 (05:25→12:36)
[2022-02-03 06:13] LABS: CALCIUM, TOTAL 8.2 mg/dL (8.8-10.5); CREATININE 1.96 mg/dL (0.60-1.30); POTASSIUM 3.3 mmol/L (3.5-5.1)
[2022-02-03 06:16] LABS: BASOPHILS % (AUTO) 0.3 % (0.0-2.0); EOSINOPHILS % (AUTO) 2.4 % (1.0-6.0); HEMOGLOBIN 11.4 g/dL (13.5-17.5); LYMPHOCYTES # (AUTO) 1.3 K/uL (1.0-4.8); LYMPHOCYTES % (AUTO) 16.6 % (22.0-44.0); MEAN CORPUSCULAR HEMOGLOBIN 27.2 pg (26.0-34.0); MEAN CORPUSCULAR HGB CONC 32.6 G/dL (31.0-37.0); MEAN CORPUSCULAR VOLUME 84 fL (80-100); MONOCYTES # (AUTO) 0.4 K/uL (0.1-1.0); MONOCYTES % (AUTO) 5.2 % (2.0-9.0); NEUTROPHILS # (AUTO) 5.7 K/uL (1.8-7.7); NEUTROPHILS % (AUTO) 75.5 % (40.0-70.0); PLATELET COUNT (AUTO) 191 K/uL (150-450); RED BLOOD CELL COUNT(AUTO) 4.19 MIL/uL (4.50-5.90); RED CELL DISTRIBUTION WIDTH 16.3 % (11.5-14.5)
[2022-02-03] MEDS: MORPHINE SULFATE 2 MG/ML SYRINGE IVP PRN ×2 (06:21→10:52)
[2022-02-03 08:00] VITALS: BP 172/128
[2022-02-03] MEDS: HEPARIN SODIUM,PORCINE 5,000 UNITS/ML VIAL SQ SCH ×2 (08:00→09:06)
[2022-02-03] MEDS ORDERED: POTASSIUM CHLORIDE 20 MEQ ER TABLET PO ONE (08:00)
[2022-02-03] MEDS ORDERED: FAMOTIDINE 20 MG TABLET PO SCH (09:00)
[2022-02-03] MEDS ORDERED: AmLODIPine BESYLATE 10 MG TABLET PO SCH (09:00)
[2022-02-03] MEDS ORDERED: CLOPIDOGREL BISULFATE 75 MG TABLET PO SCH (09:00)
[2022-02-03] MEDS ORDERED: ASPIRIN 81 MG CHEWABLE TABLET PO SCH (09:00)
[2022-02-03] MEDS: FUROSEMIDE 20 MG/2 ML VIAL IVP SCH (09:07)
[2022-02-03] MEDS: CARVEDILOL 12.5 MG TABLET PO SCH (09:08)
[2022-02-03] MEDS: DOCUSATE SODIUM 100 MG CAPSULE PO SCH (09:08)
[2022-02-03] MEDS: LOSARTAN POTASSIUM 50 MG TABLET PO SCH (09:09)
[2022-02-03] MEDS: ATORVASTATIN CALCIUM 40 MG TABLET PO SCH (09:09)
[2022-02-03 12:00] VITALS: BP 180/106
[2022-02-03 12:36] VITALS: BP 180/106
[2022-02-03] MEDS ORDERED: BUTALBITAL/ACETAMINOPHEN/CAFFEINE 50-325-40 MG TABLET PO PRN (21:30)
[2022-02-04] MEDS ORDERED: IBUPROFEN 800 MG TABLET PO SCH (08:00)
[2022-02-04] MEDS ORDERED: ASPIRIN 81 MG DR TABLET PO SCH (09:00)
[2022-02-04] MEDS ORDERED: HYDROCHLOROTHIAZIDE 25 MG TABLET PO SCH (09:00)
[2022-02-04] MEDS ORDERED: HydrALAZINE HCL 50 MG TABLET PO SCH (09:00)
[2022-02-04] MEDS ORDERED: AmLODIPine BESYLATE 10 MG TABLET PO SCH (09:00)
[2022-02-04] MEDS ORDERED: DIAZEPAM 10 MG TABLET PO SCH (09:00)
[2022-02-04] MEDS ORDERED: ISOSORBIDE MONONITRATE 30 MG ER TABLET PO SCH (09:00)
[2022-02-04] MEDS ORDERED: METOPROLOL SUCCINATE 50 MG ER TABLET PO SCH (09:00)
[2022-02-04] MEDS ORDERED: CLOPIDOGREL BISULFATE 75 MG TABLET PO SCH (09:00)
== END 2022-02-03 19:00 | disposition left against medical advice (07) | DRG 194 ==
LOC: EMS 12:28 → ICU 14:19
PROVIDERS: ADMIT Internal Medicine; ATTEND Internal Medicine
DX: I11.0 Hypertensive heart disease with heart failure (principal); J96.01 Acute respiratory failure with hypoxia; N17.9 Acute kidney failure, unspecified; I16.1 Hypertensive emergency; I50.33 Acute on chronic diastolic (congestive) heart failure; E78.5 Hyperlipidemia, unspecified; F17.210 Nicotine dependence, cigarettes, uncomplicated; E87.6 Hypokalemia; Z20.822 Contact with and (suspected) exposure to COVID-19; F41.9 Anxiety disorder, unspecified; G43.909 Migraine, unspecified, not intractable, without status migrainosus; Z53.29 Procedure and treatment not carried out because of patient's decision for other reasons; I25.2 Old myocardial infarction; Z95.5 Presence of coronary angioplasty implant and graft; Z88.5 Allergy status to narcotic agent; Z88.8 Allergy status to other drugs, medicaments and biological substances; Z86.718 Personal history of other venous thrombosis and embolism
CPT/HCPCS: 71045; 80048; 80053; 81001; 81002; 82550; 83880; 84484; 85025; 85379; 87040; 87081; 93005; 93306; 99291; G0378; J0360; J1644; J1940; J2270; J2405; J3490; J7060; 36415-L1; 36415-TC

== ENCOUNTER 2022-05-17 23:09 | Emergency (ER) | payer OTHER ==
[~2022-05-17] VITALS: Ht 167.6 cm; Wt 71.2 kg
[~2022-05-17 23:09] MED LIST changes: -LOSA-382 PO; -PRAV20TA4 PO; -SERT-158 PO
[2022-05-17] MEDS ORDERED: INDO-16 PO (23:19)
[2022-05-18] MEDS ORDERED: IBUPROFEN 600 MG TABLET PO ONE (02:15)
[2022-05-18] MEDS ORDERED: HYDROCODONE/ACETAMINOPHEN 5-325 MG TABLET PO ONE (02:15)
[2022-05-18] MEDS ORDERED: CloNIDine HCL 0.2 MG TABLET PO ONE (02:15)
[2022-05-18] MEDS ORDERED: COLCHICINE 0.6 MG TABLET PO ONE ×2 (02:15→03:30)
[2022-05-18 02:37] LABS: BASOPHILS % (AUTO) 0.5 % (0.0-2.0); EOSINOPHILS % (AUTO) 1.1 % (1.0-6.0); LYMPHOCYTES # (AUTO) 1.6 K/uL (1.0-4.8); LYMPHOCYTES % (AUTO) 14.4 % (22.0-44.0); MEAN CORPUSCULAR HEMOGLOBIN 27.1 pg (26.0-34.0); MEAN CORPUSCULAR HGB CONC 32.3 G/dL (31.0-37.0); MEAN CORPUSCULAR VOLUME 84 fL (80-100); MONOCYTES # (AUTO) 0.8 K/uL (0.1-1.0); MONOCYTES % (AUTO) 6.7 % (2.0-9.0); NEUTROPHILS # (AUTO) 8.8 K/uL (1.8-7.7); NEUTROPHILS % (AUTO) 77.3 % (40.0-70.0); PLATELET COUNT (AUTO) 152 K/uL (150-450); RED BLOOD CELL COUNT(AUTO) 4.04 MIL/uL (4.50-5.90); RED CELL DISTRIBUTION WIDTH 17.2 % (11.5-14.5)
[2022-05-18 03:40] LABS: CALCIUM, TOTAL 8.9 mg/dL (8.8-10.5); CREATININE 2.21 mg/dL (0.60-1.30); POTASSIUM 3.6 mmol/L (3.5-5.1)
[2022-05-18 04:06] VITALS: BP 204/137
[2022-05-18] MEDS ORDERED: INDO-16 PO (04:15)
== END 2022-05-18 05:19 | disposition left against medical advice (07) ==
LOC: EMS 23:21
DX: M10.9 Gout, unspecified (principal); I10 Essential (primary) hypertension; F41.9 Anxiety disorder, unspecified; M19.90 Unspecified osteoarthritis, unspecified site; J40 Bronchitis, not specified as acute or chronic; I82.409 Acute embolism and thrombosis of unspecified deep veins of unspecified lower extremity; G43.909 Migraine, unspecified, not intractable, without status migrainosus; F17.210 Nicotine dependence, cigarettes, uncomplicated; F12.90 Cannabis use, unspecified, uncomplicated
CPT/HCPCS: 71045; 80048; 85025; 93005; 99285; 36415-L1; 36415-TC

== ENCOUNTER 2022-12-08 05:41 | Inpatient (IN) | payer OTHER ==
[2022-12-08] VITALS (9 sets, daily range): BP systolic 139–211; BP diastolic 86–118; PULSE 58–81; RESP 20; TEMP 98.2
[~2022-12-08] VITALS: Ht 167.6 cm; Wt 66.4 kg
[~2022-12-08 05:41] MED LIST changes: -AMLO-258 PO; +INDO-16 PO
[2022-12-08] MEDS ORDERED: LABETALOL HCL 5 MG/ML 20 ML VIAL IVP ONE ×2 (06:00→07:30)
[2022-12-08 06:35] LABS: BASOPHILS % (AUTO) 0.4 % (0.0-2.0); EOSINOPHILS % (AUTO) 1.9 % (1.0-6.0); HEMATOCRIT 27.8 % (41-53); HEMOGLOBIN 9.3 g/dL (13.5-17.5); LYMPHOCYTES # (AUTO) 1.8 K/uL (1.0-4.8); MEAN CORPUSCULAR HEMOGLOBIN 29.2 pg (26.0-34.0); MEAN CORPUSCULAR HGB CONC 33.6 G/dL (31.0-37.0); MEAN CORPUSCULAR VOLUME 87 fL (80-100); MONOCYTES # (AUTO) 0.6 K/uL (0.1-1.0); MONOCYTES % (AUTO) 9.8 % (2.0-9.0); NEUTROPHILS # (AUTO) 3.5 K/uL (1.8-7.7); NEUTROPHILS % (AUTO) 57.9 % (40.0-70.0); PLATELET COUNT (AUTO) 263 K/uL (150-450); RED BLOOD CELL COUNT(AUTO) 3.19 MIL/uL (4.50-5.90); RED CELL DISTRIBUTION WIDTH 24.1 % (11.5-14.5)
[2022-12-08 06:41] LABS: APPEARANCE,URINE CLEAR (CLEAR); BILIRUBIN,URINE NEGATIVE (NEGATIVE); GLUCOSE, URINE (UA) NEGATIVE (NEGATIVE); KETONES,URINE NEGATIVE (NEGATIVE); LEUKOCYTE ESTERASE ,URINE NEGATIVE (NEGATIVE); NITRATE,URINE NEGATIVE (NEGATIVE); OCCULT BLOOD,URINE NEGATIVE (NEGATIVE); PH,URINE 7.5 (5.0-8.0); PROTEIN,URINE NEGATIVE (NEGATIVE); SPECIFIC GRAVITIY, URINE 1.008 (1.003-1.030); UROBILINOGEN,URINE <=1.0 mg/dL (<=1.0)
[2022-12-08 06:47] LABS: CALCIUM, TOTAL 9.2 mg/dL (8.8-10.5); CREATININE 3.62 mg/dL (0.60-1.30); POTASSIUM 4.2 mmol/L (3.5-5.1)
[2022-12-08 07:09] LABS: PROTHROMBIN TIME 10.4 SEC (9.4-11.6)
[2022-12-08 07:22] LABS: ALBUMIN 2.9 g/dL (3.4-5.0); BILIRUBIN,TOTAL 0.3 mg/dL (0.1-1.0); TOTAL PROTEIN, SERUM 7.2 g/dL (6.4-8.2)
[2022-12-08] MEDS ORDERED: ACETAMINOPHEN 325 MG TABLET PO PRN (08:00)
[2022-12-08] MEDS ORDERED: ONDANSETRON HCL 4 MG/2 ML VIAL IVP PRN (08:00)
[2022-12-08] MEDS ORDERED: 0.9% SODIUM CHLORIDE 10 ML SYRINGE IVP PRN (08:00)
[2022-12-08] MEDS ORDERED: FOLIC ACID/VIT B COMPLEX AND C TABLET PO SCH (09:45)
[2022-12-08] MEDS ORDERED: SODIUM CHLORIDE 0.9% 1,000 ML ONE (11:15)
== END 2022-12-08 15:15 | disposition left against medical advice (07) | DRG 199 ==
LOC: EMS 05:42 → AHU 07:57 → 5S 08:56
PROVIDERS: ADMIT Hospitalist; ATTEND Hospitalist
PROC: 5A1D70Z Performance of Urinary Filtration, Intermittent, Less than 6 Hours Per Day (ICD-10-PCS; principal; 2022-12-08)
DX: I16.0 Hypertensive urgency (principal); N18.6 End stage renal disease; F41.9 Anxiety disorder, unspecified; G43.909 Migraine, unspecified, not intractable, without status migrainosus; Z53.29 Procedure and treatment not carried out because of patient's decision for other reasons; F12.90 Cannabis use, unspecified, uncomplicated; E78.5 Hyperlipidemia, unspecified; I12.0 Hypertensive chronic kidney disease with stage 5 chronic kidney disease or end stage renal disease; R60.0 Localized edema; F17.210 Nicotine dependence, cigarettes, uncomplicated; Z79.82 Long term (current) use of aspirin; Z79.899 Other long term (current) drug therapy; Z86.718 Personal history of other venous thrombosis and embolism; Z99.2 Dependence on renal dialysis; Z88.8 Allergy status to other drugs, medicaments and biological substances
CPT/HCPCS: 71045; 80053; 81003; 82550; 83880; 84484; 85025; 85610; 85730; 87340; 90935; 93005; 93971; 99291; J3490; J7030; 36415-L1; 36415-TC

== ENCOUNTER 2023-03-21 00:30 | Emergency (ER) | payer OTHER ==
[~2023-03-21] VITALS: Ht 167.6 cm; Wt 72.7 kg
[2023-03-21 00:39] VITALS: TEMP 98.7
[2023-03-21] MEDS ORDERED: HydrALAZINE HCL 25 MG TABLET PO ONE (01:15)
[2023-03-21] MEDS ORDERED: METH-659 PO (01:16)
[2023-03-21] MEDS ORDERED: HYDR-4723 PO (01:16)
[2023-03-21 01:24] VITALS: BP 178/110; PULSE 83; RESP 15
== END 2023-03-21 01:28 | disposition home or self-care (01) ==
LOC: EMS 00:32
DX: M54.31 Sciatica, right side (principal); G89.29 Other chronic pain; F41.9 Anxiety disorder, unspecified; M19.90 Unspecified osteoarthritis, unspecified site; I10 Essential (primary) hypertension; F17.210 Nicotine dependence, cigarettes, uncomplicated; F12.90 Cannabis use, unspecified, uncomplicated; Z98.890 Other specified postprocedural states; Z88.8 Allergy status to other drugs, medicaments and biological substances
CPT/HCPCS: 99283

== ENCOUNTER 2023-07-13 15:13 | Emergency (ER) | payer OTHER ==
[~2023-07-13] VITALS: Ht 167.6 cm; Wt 62.3 kg
[~2023-07-13 15:13] MED LIST changes: -BUTA-256 PO; +CALC667C PO; +CLON0.1T2 PO; -CLON0.3T PO; -CLOP75TA60 PO; -DIAZ10 PO; +FOLI0.8T2 PO; -HYDR25TA2 PO; -HYDR50TA36 PO; +HYDR50TA37 PO; -IBUP-2077 PO; -INDO-16 PO; -ISOS30TA92 PO; -METO-391 PO; +VALP250C48 PO
[2023-07-13 15:16] VITALS: BP 196/113; PULSE 83; RESP 18; TEMP 98.4
[2023-07-13] MEDS ORDERED: OXYC5TAB3 PO (15:23)
[2023-07-13] MEDS ORDERED: AMLO10TA55 PO (15:23)
[2023-07-13] MEDS ORDERED: ACET-66 PO (15:23)
[2023-07-13] MEDS ORDERED: HYDR100T28 PO (15:23)
== END 2023-07-13 17:30 | disposition left against medical advice (07) ==
LOC: EMS 15:15
DX: M79.604 Pain in right leg (principal); Z53.21 Procedure and treatment not carried out due to patient leaving prior to being seen by health care provider
CPT/HCPCS: 99281; Z7502